=== PATIENT | female | born 1975 | race Caucasian/White ===

== ENCOUNTER 2019-08-13 09:29 | Outpatient (CLI) | payer BC, SELFPAY ==
--- NOTE | ~2019-08-13 | MM_ITS ---
EXAMINATION: MM screening fabienne BI w aurelia HISTORY: Screening mammogram TECHNIQUE: Craniocaudal and mediolateral oblique 3-D tomosynthesis images were obtained and synthetic 2-D images were generated. CAD analysis was submitted and interpreted. COMPARISON: 07/29/2018, 07/25/2017, 07/19/2016 bilateral digital screening mammogram examinations BREAST PARENCHYMAL COMPOSITION: There are scattered areas of fibroglandular density. FINDINGS: There is no evidence of suspicious mass, calcification, or architectural distortion to sugg est malignancy in either breast. There has been no suspicious interval change. IMPRESSION: 1. No mammographic evidence of malignancy. 2. Recommend routine screening mammography in one year. BI-RADS Category 1: Negative Reviewed, dictated and finalized at location A.
== END 2019-08-13 09:30 | disposition home or self-care (01) ==
PROVIDERS: PCP Family Medicine
DX: Z12.31 Encounter for screening mammogram for malignant neoplasm of breast (principal)
CPT/HCPCS: 77063; 77067

== ENCOUNTER → 2020-08-08 13:18 | Outpatient (CLI) | payer BC, SELFPAY ==
--- NOTE | ~2020-08-08 | XR_ITS ---
XR foot LT min 3V DATE: 08/08/2020 14:12 INDICATION: Left ankle effusion. Left ankle and foot pain. TECHNIQUE: 4 views COMPARISON: Mild plantar FINDINGS: Calcaneal enthesopathy without associated erosive change or periostitis. Mild distal Achill es tendon calcification. Mild osteoarthritis at the first metatarsophalangeal joint. No fracture, dislocation, periosteal reaction or bone destruction. IMPRESSION: Plantar calcaneal enthesopathy and minimal distal Achilles tendon calcification Mild osteoarthritis at first metatarsophalangeal joint Reviewed, dictated and finalized at location A. IMPRESSION: Plantar calcaneal enthesopathy and minimal distal Achilles tendon c alcification Mild osteoarthritis at first metatarsophalangeal joint
--- NOTE | ~2020-08-08 | XR_ITS ---
XR ankle LT min 3V DATE: 08/08/2020 14:12 INDICATION: Left ankle effusion TECHNIQUE: 4 views COMPARISON: None FINDINGS: Mild plantar calcaneal enthesopathy without periostitis or erosive change. Minimal distal A chilles soft tissue calcification. No fracture or dislocation of the ankle or disruption of the ankle mortise. No periosteal reaction or bone destruction. IMPRESSION: Plantar calcaneal enthesopathy Reviewed, dictated and finalized at location A.
== END ==
PROVIDERS: PCP Family Medicine; Visit Provider Family Medicine
DX: M25.472 Effusion, left ankle (principal); M77.32 Calcaneal spur, left foot; M19.072 Primary osteoarthritis, left ankle and foot
CPT/HCPCS: 73610; 73630

== ENCOUNTER 2020-08-15 08:24 | Outpatient (CLI) | payer BC, SELFPAY ==
--- NOTE | ~2020-08-15 | MM_ITS ---
EXAMINATION: MM screening fabienne BI w aurelia HISTORY: Screening mammogram TECHNIQUE: Craniocaudal and mediolateral oblique 3-D tomosynthesis images were obtained and synthetic 2-D images were generated. CAD analysis was submitted and interpreted. COMPARISON: 08/13/2019, 07/29/2018, 08/17 2017 bilateral digital screening mammogram examinations BREAST PARENCHYMAL COMPOSITION: There are scattered areas of fibroglandular density. FINDINGS: There is no evidence of suspicious mass, calcification, or architectural distortion to sugg est malignancy in either breast. There has been no suspicious interval change. IMPRESSION: 1. No mammographic evidence of malignancy. 2. Recommend routine screening mammography in one year. BI-RADS Category 1: Negative Reviewed, dictated and finalized at location A.
== END 2020-08-15 08:25 | disposition home or self-care (01) ==
LOC: ANHIMG 08:29
PROVIDERS: PCP Family Medicine
DX: Z12.31 Encounter for screening mammogram for malignant neoplasm of breast (principal)
CPT/HCPCS: 77063; 77067

== ENCOUNTER → 2020-12-26 08:30 | Outpatient (CLI) | payer BC, SELFPAY ==
--- NOTE | ~2020-12-26 | MR_ITS ---
EXAMINATION: MR ankle LT wo con DATE: 12/26/2020 09:15 INDICATION: Left ankle pain and swelling TECHNIQUE: Magnetic resonance imaging (MRI) of the left ankle was performed without intravenous contr ast. Sequences included sagittal, coronal, and axial proton-density weighted fast spin echo without a nd with fat saturation. COMPARISON: None. FINDINGS: Medial ankle ligaments: Deep and superficial deltoid ligaments as well as the spring ligament are normal. Lateral ankle ligaments: The anterior and posterior inferior tibiofibular ligaments are normal. The anterior talofibular, calc aneofibular and posterior talofibular ligaments are normal. Tendons: Achilles tendon is normal. Mild increased fluid signal within the peroneal tendon sheath consistent w ith mild tenosynovitis. Peroneus longus and brevis tendons are normal. The tibialis anterior and exte nsor hallucis longus and extensor digitorum longus tendons are normal. Additional increased fluid sig nal consistent with tenosynovitis distally within the tibialis posterior tendon sheath. Tibialis post erior, flexor digitorum longus and flexor hallucis longus tendons are normal. Plantar fascia: Chronic mild plantar and subtly with mild thickening and increased signal of the central component of the plantar aponeurosis and with small enthesophyte at its calcaneal origin. No surrounding soft tis neel edema to suggest acute plantar fasciitis. Bones/other: Bone alignment is normal. Normal marrow signal throughout. No fracture or pathologic marrow replacing process. Joint spaces appear relatively preserved with no evident chondromalacia, osteophytes or ero sions. Physiologic amount fluid in the joint spaces. IMPRESSION: 1. Mild tibialis posterior and peroneal tenosynovitis with normal-appearing tendons. 2. Chronic mild plantar enthesopathy. Reviewed, dictated and finalized at location B. IMPRESSION: 1. Mild tibialis posterior and peroneal tenosynovitis with normal-appearing ten dons. 2. Chronic mild plantar enthesopathy.
== END ==
PROVIDERS: PCP Family Medicine
DX: M77.32 Calcaneal spur, left foot (principal); M65.872 Other synovitis and tenosynovitis, left ankle and foot
CPT/HCPCS: 73721

== ENCOUNTER 2021-08-17 07:48 | Outpatient (CLI) | payer BC, SELFPAY ==
--- NOTE | ~2021-08-17 | MM_ITS ---
EXAMINATION: MM screening fabienne BI w aurelia HISTORY: Screening mammogram TECHNIQUE: Craniocaudal and mediolateral oblique 3-D tomosynthesis images were obtained and synthetic 2-D images were generated. CAD analysis was submitted and interpreted. COMPARISON: 08/11/2020, 08/13/2019, 07/29/2018 bilateral screening mammogram examinations BREAST PARENCHYMAL COMPOSITION: There are scattered areas of fibroglandular density. FINDINGS: There is no evidence of suspicious mass, calcification, or architectural distortion to sugg est malignancy in either breast. There has been no suspicious interval change. IMPRESSION: 1. No mammographic evidence of malignancy. 2. Recommend routine screening mammography in one year. BI-RADS Category 1: Negative Reviewed, dictated and finalized at location A.
== END 2021-08-17 07:49 | disposition home or self-care (01) ==
PROVIDERS: PCP Family Medicine; Visit Provider Obstetrics & Gynecology
DX: Z12.31 Encounter for screening mammogram for malignant neoplasm of breast (principal)
CPT/HCPCS: 77063; 77067

== ENCOUNTER 2021-10-24 00:03 | Day surgery (SDC) | payer BC, SELFPAY ==
[2021-10-04 15:10] VITALS: BMI 38.5
[2021-10-24 08:09] VITALS: BP 125/79; PULSE 84; RESP 116; TEMP 36.5; O2SAT 100; BMI 37.5
[2021-10-24] MEDS: LACTATED RINGERS 1,000 ML 150 ML IV CONT (08:17)
--- NOTE | 2021-10-24 08:17 | SUR.PREOP ---
Per Dr. Rouse there is no need to do a urine test on patient due to the ablation 14 yrs ago and not having a menstrual period since then.
--- NOTE | 2021-10-24 09:00 | P.HP_ITS ---
H&P: HPI History of Present Illness Date/Time: 10/24/21 09:00 Chief Complaint: Neoplasia screening. Narrative: This is a 46-year-old white female patient presents for screening colonoscopy. Patient's current weight appetite and bowel movements are normal. Patient denies abdominal pain. She has had no bleeding. Family history is noncontributory. She presents today for screening colonoscopy. Review of Systems Review of Systems: Review of systems noncontributory. [facility] Past Medical History Medical History Allergic rhinitis, cause unspecified Body mass index [BMI] 35.0-35.9, adult (10/15/18) GERD with esophagitis Other herpesviral infection Sciatic leg pain Social History Social History Smoking status: Never smoker Second hand tobacco smoke exposure: No Alcohol intake: current Alcohol use details: 1 glass of wine per week Substance use: never Substance use type: does not use Living arrangements: with family Spiritual care concerns: No Meds Home Medications and Allergies Home Medications Medication Instructions Recorded Confirmed Type valacyclovir 1 gram tablet 2,000 mg PO Q12H #12 tabs 04/17/21 10/24/21 Rx phentermine 37.5 mg tablet 18.75 mg PO DAILY #45 tabs 08/25/21 10/24/21 Rx topiramate 25 mg tablet 25 mg PO DAILY #90 tabs 08/25/21 10/24/21 Rx Allergies Allergy/AdvReac Type Severity Reaction Status Date / Time cephalexin Allergy Unknown Unknown Verified 10/24/21 08:08 Vital Signs Vital Signs - 24 hr 10/24/21 08:09 Temperature 97.7 F Pulse Rate 84 Respiratory Rate 116 H Blood Pressure 125/79 Pulse Oximetry 100 Oxygen Delivery Room Air Exam Narrative: Physical exam reveals patient to be alert. Vital signs stable. HEENT exam is unremarkable. Patient is anicteric. Lungs are clear to auscultation and percussion. Heart is without murmur or extra sounds. Abdominal exam bowel sounds are present soft nontender with no hepatospleno megaly. Digital external rectal exam is normal. Assessment and Plan Assessment and plan (1) Encounter for screening colonoscopy: Code(s): Z12.11 - Encounter for screening for malignant neoplasm of colon Status: Acute Assessment and Plan: Patient presents for screening colonoscopy. Appears to be at average risk for colon polyps. Further recommendations will be given after endoscopy.
--- NOTE | 2021-10-24 09:20 | WPDANESEPPF ---
Anes - Initial Pre Proc Eval Procedure: Operation Date: 10/24/21 09:30 Proposed Procedures p Screening Colonoscopy - Frederic Bradford MD Date/Time: 10/24/21 09:20 Surgeon: Frederic Bradford MD Pre Op Diagnosis: neoplasm screening Patient Data Age: 46 Gender: F Height: 1.65 m Weight: 102.2 kg Last Vital Signs Temp 97.7 F 10/24/21 08:09 Pulse 84 10/24/21 08:09 Resp 116 H 10/24/21 08:09 BP 125/79 10/24/21 08:09 Pulse Ox 100 10/24/21 08:09 O2 Del Method Room Air 10/24/21 08:09 Allergies Allergy/AdvReac Type Severity Reaction Status Date / Time cephalexin Allergy Unknown Unknown Verified 10/24/21 08:08 Home Medications Medication Instructions Recorded Confirmed Type valacyclovir 1 gram tablet 2,000 mg PO Q12H #12 tabs 04/17/21 10/24/21 Rx phentermine 37.5 mg tablet 18.75 mg PO DAILY #45 tabs 08/25/21 10/24/21 Rx topiramate 25 mg tablet 25 mg PO DAILY #90 tabs 08/25/21 10/24/21 Rx Patient hx anesthesia problems: none Family hx anesthesia problems: none Results Review: All pre-operative results and documents have been reviewed as part of the pre-operative evaluation. [facility] Past Medical History Medical History Allergic rhinitis, cause unspecified Body mass index [BMI] 35.0-35.9, adult (10/15/18) GERD with esophagitis Other herpesviral infection Sciatic leg pain Social History Social History Smoking status: Never smoker Second hand tobacco smoke exposure: No Alcohol intake: current Alcohol use details: 1 glass of wine per week Substance use: never Substance use type: does not use Living arrangements: with family Spiritual care concerns: No Anes - Eval Final PreProcedure Day of Procedure 10/24/21 09:20 Patient weight: obese Heart: regular rate and rhythm Lungs: clear to auscultation Airway: Mallampati scale class II Neurological: alert and oriented Last oral intake: >/= 8 hours ASA classification: II Emergent: no Anesthetic plan: proceed Anesthesia type and monitoring: general GIVS and standard monitoring Results Review: All pre-operative results and documents have been reviewed as part of the pre-operative evaluation. Informed Consent: The patient's anesthetic plan and its attendant risks and benefits were discussed with the patient/family/POA. Questions were solicited and answers provided to the satisfaction of the patient/family/POA.
[2021-10-24 09:57] VITALS: BP 89/72; PULSE 76; RESP 76; O2SAT 100
[2021-10-24 10:07] VITALS: BP 104/59; PULSE 74; RESP 76; O2SAT 100
[2021-10-24 10:17] VITALS: BP 114/79; PULSE 75; RESP 76; O2SAT 100
== END 2021-10-24 10:30 | disposition home or self-care (01) ==
PROVIDERS: PCP Family Medicine; Visit Provider Internal Medicine Gastroenterology
PROC: 0DJD8ZZ Inspection of Lower Intestinal Tract, Via Natural or Artificial Opening Endoscopic (ICD-10-PCS; CPT 45378; principal; 2021-10-24 09:30)
DX: Z12.11 Encounter for screening for malignant neoplasm of colon (principal); K64.8 Other hemorrhoids; K21.00 Gastro-esophageal reflux disease with esophagitis, without bleeding; E66.9 Obesity, unspecified; Z68.37 Body mass index [BMI] 37.0-37.9, adult
CPT/HCPCS: 45378; J2704; J7120

== ENCOUNTER 2022-10-02 08:17 | Outpatient (CLI) | payer BC, SELFPAY ==
--- NOTE | ~2022-10-02 | MM_ITS ---
EXAMINATION: MM screening fabienne BI w aurelia HISTORY: Screening mammogram TECHNIQUE: Craniocaudal and mediolateral oblique 3-D tomosynthesis images were obtained and synthetic 2-D images were generated. CAD analysis was submitted and interpreted. COMPARISON: 08/17/2021, 08/11/2020, 08/13/2019 bilateral screening mammogram examinations BREAST PARENCHYMAL COMPOSITION: There are scattered areas of fibroglandular density. FINDINGS: There is no evidence of suspicious mass, calcification, or architectural distortion to sugg est malignancy in either breast. There has been no suspicious interval change. IMPRESSION: 1. No mammographic evidence of malignancy. 2. Recommend routine screening mammography in one year. BI-RADS Category 1: Negative Reviewed, dictated and finalized at location A.
== END 2022-10-02 08:18 | disposition home or self-care (01) ==
PROVIDERS: PCP Family Medicine; Visit Provider Obstetrics & Gynecology
DX: Z12.31 Encounter for screening mammogram for malignant neoplasm of breast (principal)
CPT/HCPCS: 77063; 77067

== ENCOUNTER 2023-03-24 19:33 | Emergency (ER) | payer BC, SELFPAY ==
--- NOTE | 2023-03-24 19:35 | ED.SKABFB ---
HPI - Skin/Abscess/Foreign Bdy General Chief complaint: Wound/Laceration Stated complaint: FINGER LACERATION Time Seen by Provider: 03/24/23 19:40 Source: patient and family Mode of arrival: ambulatory Limitations: no limitations History of Present Illness HPI narrative: Patient presents with laceration to left index finger. Patient states she was cutting [place] for a new year's [place] green party and cut herself with knife. Patient reports she was unable to get bleeding to stop, wound looks deep and is concerned that she may need sutures. Last tetanus was 1 year ago. Range of motion and distal neurovascularly intact. All systems reviewed and negative except as noted above. Related Data Allergies Allergy/AdvReac Type Severity Reaction Status Date / Time cephalexin Allergy Unknown Unknown Verified 03/24/23 19:40 Review of Systems Review of Systems: CONSTITUTIONAL: Denies fever, chills, or sweats. EYES: Denies visual changes, redness, or discharge. ENT: Denies rhinorrhea, congestion, sore throat, or otalgia. CARDIOVASCULAR: Denies chest pain, palpitations, or edema. RESPIRATORY: Denies cough or dyspnea. GASTROINTESTINAL: Denies abdominal pain, nausea, vomiting, or diarrhea. GENITOURINARY: Denies dysuria or hematuria. SKIN: Denies rash or itching. Reports laceration to left index finger. MUSCULOSKELETAL: Denies back pain, joint pain, or myalgia. NEUROLOGIC: Denies headache, numbness, or weakness. PSYCHIATRIC: Denies anxiety or depression. All other systems reviewed are negative, except as documented in HPI. [facility] Past Medical History Medical History Allergic rhinitis, cause unspecified Body mass index [BMI] 35.0-35.9, adult (10/15/18) GERD with esophagitis Other herpesviral infection Sciatic leg pain Social History Social History (Updated 01/03/23 @ 13:30 by Jessica Cordova MA) Social History: Caffeine-none Smoking status: Never smoker Second hand tobacco smoke exposure: No Alcohol intake: current Alcohol use details: 1 glass of wine per week Substance use: never Substance use type: does not use Lack of Transportation: No Lack of Food: Never True Current Housing: I Have Housing Concerned About Future Housing: No Difficulty Paying Gas/Electric Bills: No Difficulty Paying for Meds: No Currently Unemployed: No Education: Bachelor's Degree Difficulty w/ Childcare or Family Care: No Living arrangements: with family Spiritual care concerns: No Comments At time of signature, agree with nursing past medical, surgical, social and family history. There is no relevant family history pertinent to the presenting complaint. Exam Narrative: GENERAL: This is a well-nourished, well-developed patient, in no apparent distress. HEAD: normocephalic, atraumatic. EYES: PERRL. Sclera clear/white. Vision is grossly intact. EARS: External ears normal NOSE: External nose normal NECK: Neck supple, non-tender without lymphadenopathy, masses or thyromegaly. CARDIOVASCULAR: Regular rate and rhythm without murmurs, gallops, or rubs. RESPIRATORY: Clear to auscultation. Breath sounds equal bilaterally. No wheezes, rales, or rhonchi. SKIN: warm, Dry, with no suspicious lesions or rash, good texture and turgor. Laceration to distal aspect of left index finger approximately 1 cm, v-shaped. NEURO: awake, alert, and oriented to person, place and time. There were no obvious focal neurologic abnormalities. EXTREMITIES: No joint tenderness, effusion, or edema noted. Course Course Level of Care: Express Care Visit Vital Signs Vital signs: Reviewed Procedures Laceration Laceration 1: Date: 03/24/23 Time: 19:55 Site: hand (Left index finger) Side (If applicable): left Size (cm): 1 Description: flap and irregular Depth: simple, single layer Local Anesthetic: lidocaine 1% Amount of anesthesia u
[2023-03-24 19:44] VITALS: BP 139/92; PULSE 97; RESP 20; TEMP 37; O2SAT 99
== END 2023-03-24 20:10 | disposition home or self-care (01) ==
PROVIDERS: Emergency Provider Nurse Practitioner Family; PCP Family Medicine
DX: S61.211A Laceration without foreign body of left index finger without damage to nail, initial encounter (principal); W26.0XXA Contact with knife, initial encounter
CPT/HCPCS: 12001; 99212; G0463

== ENCOUNTER 2023-11-28 07:30 | Outpatient (CLI) | payer BC, SELFPAY ==
--- NOTE | ~2023-11-28 | MM_ITS ---
EXAMINATION: MM screening fabienne BI w aurelia HISTORY: Screening TECHNIQUE: Craniocaudal and mediolateral oblique 3-D tomosynthesis images were obtained and synthetic 2-D images were generated. CAD analysis was submitted and interpreted. COMPARISON: Comparison to multiple prior studies sequentially, with oldest reviewed study dated 05/2017. BREAST PARENCHYMAL COMPOSITION: Not dense: There are scattered areas of fibroglandular density. FINDINGS: There is no evidence of suspicious mass, calcification, or architectural distortion to sugg est malignancy in either breast. There has been no suspicious interval change. IMPRESSION: 1. No mammographic evidence of malignancy. 2. Recommend routine screening mammography in one year. BI-RADS Category 1: Negative Reviewed, dictated and finalized at location B.
== END 2023-11-28 07:31 | disposition home or self-care (01) ==
PROVIDERS: PCP Family Medicine; Visit Provider Obstetrics & Gynecology
DX: Z12.31 Encounter for screening mammogram for malignant neoplasm of breast (principal)
CPT/HCPCS: 77063; 77067

== ENCOUNTER 2024-11-24 15:52 | Outpatient (CLI) | payer BC, SELFPAY ==
--- OUTSIDE RECORDS SUMMARY | 2024-11-24 15:55 | XMS_ITS | Encounter Summary ---
Author Organization [facility] Address [address] [place] [address] Care Team Providers Care Tapper Helper Name Role Phone Mejia Mcgarry MD Primary Care Provider [phone]- [phone] Encounter Details Date Type Department Care Team (Late Contact Info) Description 10/08/2001 Outpatient Historical 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 CONGRESSIONAL AIDE - Medical [place] [address] [place] [address] Eli Escobar MD [address] [place] [address] documented as of this encounter Visit Diagnoses Not on filedocumented in this encounter Care Teams Tapper Helper Relationship Specialty Start Date End Date Mejia Mcgarry MD PCP - General Family Practice 11/04/20 documented as of this encounter
--- OUTSIDE RECORDS SUMMARY | 2024-11-24 15:55 | XMS_ITS | Encounter Summary ---
Author Organization [facility] Address [address] [place] [address] Care Team Providers Care Sheriff Officer Name Role Phone Mejia Mcgarry MD Primary Care Provider [phone]- [phone] Encounter Details Date Type Department Care Team (Late Contact Info) Description 10/09/2000 Outpatient Historical [facility] Family Medicine - 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 Gender Identity Not on file Sexual Orientation Not on file documented as of this encounter Plan of Treatment Upcoming Encounters Date Type Department Care Team (Late st Contact Info) Description 10/27/2025 9:45 AM CDT Office Visit [facility] WHEELCHAIR VAN DRIVER - Medical [place] [address] [place] [address] Eli Escobar MD [address] [place] [address] documented as of this encounter Visit Diagnoses Not on filedocumented in this encounter Care Teams Sheriff Officer Relationship Specialty Start Date End Date Mejia Mcgarry MD PCP - General Family Practice 11/04/20 documented as of this encounter
--- OUTSIDE RECORDS SUMMARY | 2024-11-24 15:55 | XMS_ITS | Encounter Summary ---
Author Organization [facility] Address [address] [place] [address] Care Team Providers Care Tempering Machine Operator Name Role Phone Mejia Mcgarry MD Primary Care Provider [phone]- [phone] Encounter Details Date Type Department Care Team (Late Contact Info) Description 08/29/1998 Outpatient Historical [facility] Family Medicine - [facility] [address] 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 Gender Identity Not on file Sexual Orientation Not on file documented as of this encounter Plan of Treatment Upcoming Encounters Date Type Department Care Team (Late st Contact Info) Description 10/27/2025 9:45 AM CDT Office Visit [facility] FISHERIES BIOLOGIST - Medical [place] [address] [place] [address] Eli Escobar MD [address] [place] [address] documented as of this encounter Visit Diagnoses Not on filedocumented in this encounter Care Teams Tempering Machine Operator Relationship Specialty Start Date End Date Mejia Mcgarry MD PCP - General Family Practice 11/04/20 documented as of this encounter
--- OUTSIDE RECORDS SUMMARY | 2024-11-24 15:55 | XMS_ITS | Encounter Summary ---
Author Organization [facility] Address [address] [place] [address] Care Team Providers Care Livestock Farmer Name Role Phone Mejia Mcgarry MD Primary Care Provider +1- [phone] Encounter Details Date Type Department Care Team (Late Contact Info) Description 06/28/2000 Outpatient Historical [facility] Family Medicine - [facility] [address] 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 Gender Identity Not on file Sexual Orientation Not on file documented as of this encounter Plan of Treatment Upcoming Encounters Date Type Department Care Team (Late st Contact Info) Description 10/27/2025 9:45 AM CDT Office Visit [facility] CABLEWAY OPERATOR - Medical [place] [address] [place] [address] Eli Escobar MD [address] [place] [address] documented as of this encounter Visit Diagnoses Not on filedocumented in this encounter Care Teams Livestock Farmer Relationship Specialty Start Date End Date Mejia Mcgarry MD PCP - General Family Practice 11/04/20 documented as of this encounter
--- OUTSIDE RECORDS SUMMARY | 2024-11-24 15:55 | XMS_ITS | Encounter Summary ---
Author Organization [facility] Address [address] [place] [address] Care Team Providers Care Strategic Alliances Manager Name Role Phone Mejia Mcgarry MD Primary Care Provider +1- [phone] Encounter Details Date Type Department Care Team (Latest Contact Info) Description 09/12/1999 Outpatient Historical [facility] Roberto Sosa MD [facility] [address] [address] Unspecified high-risk (Primary Dx) Social History Tobacco Use Types Packs/Day Years Used Date Smoking Tobacco: Never Assessed Comments Unknown Sex and Gender Information Value Date Recorded Sex Assigned at Not on file 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 Gender Identity Not on file Sexual Orientation Not on file documented as of this encounter Plan of Treatment Upcoming Encounters Date Type Department Care Team (Late st Contact Info) Description 10/27/2025 9:45 AM CDT Office Visit [facility] FIELD CARE MANAGER - Medical [place] [address] [address] Eli Escobar MD [address] [address] documented as of this encounter Visit Diagnoses Diagnosis Unspecified high-risk - Primary documented in this encounter Care Teams Strategic Alliances Manager Relationship Specialty Start Date End Date Mejia Mcgarry MD PCP - General Family Practice 11/04/20 documented as of this encounter
--- OUTSIDE RECORDS SUMMARY | 2024-11-24 15:55 | XMS_ITS | Encounter Summary ---
Author Organization [facility] Address [address] [place] [address] Care Team Providers Care Director Of Recreation Therapy Name Role Phone Mejia Mcgarry MD Primary Care Provider +1- [phone] Encounter Details Date Type Department Care Team (Late Contact Info) Description 01/10/2001 Outpatient Historical [facility] Family Medicine - [facility] [address] [facility] [address] [place] [address] Kenisha Rosado MD [address] [place] [address] Social History Tobacco Use Types Packs/Day Years Used Date Smoking Tobacco: Never Assessed Comments Unknown Sex and Gender Information Value Date Recorded Sex Assigned at Not on file Legal Sex Female 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 Gender Identity Not on file Sexual Orientation Not on file documented as of this encounter Plan of Treatment Upcoming Encounters Date Type Department Care Team (Late st Contact Info) Description 10/27/2025 9:45 AM CDT Office Visit [facility] BELT PICKER - Medical [place] [address] [place] [address] Eli Escobar MD [address] [place] [address] documented as of this encounter Visit Diagnoses Not on filedocumented in this encounter Care Teams Director Of Recreation Therapy Relationship Specialty Start Date End Date Mejia Mcgarry MD PCP - General Family Practice 11/04/20 documented as of this encounter
--- OUTSIDE RECORDS SUMMARY | 2024-11-24 15:55 | XMS_ITS | Encounter Summary ---
Author Organization [facility] Address [address] [place] [address] Care Team Providers Care Area Supervisor Name Role Phone Mejia Mcgarry MD Primary Care Provider +1- [phone] Encounter Details Date Type Department Care Team (Late Contact Info) Description 08/13/2000 Outpatient Historical [facility] Family Medicine - [facility] [address] [facility] [address] [place] [address] Kenisha Rosado MD [address] [place] [address] Social History Tobacco Use Types Packs/Day Years Used Date Smoking Tobacco: Never Assessed Comments Unknown Sex and Gender Information Value Date Recorded Sex Assigned at Not on file Legal Sex Female 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 Gender Identity Not on file Sexual Orientation Not on file documented as of this encounter Plan of Treatment Upcoming Encounters Date Type Department Care Team (Late st Contact Info) Description 10/27/2025 9:45 AM CDT Office Visit [facility] SUPERVISOR WHIPPED TOPPING - Medical [place] [address] [place] [address] Eli Escobar MD [address] [place] [address] documented as of this encounter Visit Diagnoses Not on filedocumented in this encounter Care Teams Area Supervisor Relationship Specialty Start Date End Date Mejia Mcgarry MD PCP - General Family Practice 11/04/20 documented as of this encounter
--- OUTSIDE RECORDS SUMMARY | 2024-11-24 15:55 | XMS_ITS | Encounter Summary ---
Author Organization [facility] Address [address] [place] [address] Care Team Providers Care Newspaper Clipper Name Role Phone Mejia Mcgarry MD Primary Care Provider +1- [phone] Encounter Details Date Type Department Care Team (Latest Contact Info) Description 08/11/1999 Outpatient Historical [facility] Roberto Sosa MD [facility] [address] [address] Unspecified high-risk (Primary Dx) Social History Tobacco Use Types Packs/Day Years Used Date Smoking Tobacco: Never Assessed Comments Unknown Sex and Gender Information Value Date Recorded Sex Assigned at Not on file Legal Sex Female 4:56 AM TRAUMA MANAGER Gender Identity Not on file Sexual Orientation Not on file documented as of this encounter Plan of Treatment Upcoming Encounters Date Type Department Care Team (Late st Contact Info) Description 10/27/2025 9:45 AM CDT Office Visit [facility] ELECTRICAL TESTS SUPERVISOR - Medical [place] [address] [address] Eli Escobar MD [address] [address] documented as of this encounter Visit Diagnoses Diagnosis Unspecified high-risk - Primary documented in this encounter Care Teams Newspaper Clipper Relationship Specialty Start Date End Date Mejia Mcgarry MD PCP - General Family Practice 11/04/20 documented as of this encounter
--- OUTSIDE RECORDS SUMMARY | 2024-11-24 15:55 | XMS_ITS | Encounter Summary ---
Author Organization [facility] Address [address] [place] [address] Care Team Providers Care Heel Top Lift Splitter Name Role Phone Mejia Mcgarry MD Primary Care Provider +1- [phone] Encounter Details Date Type Department Care Team (Latest Contact Info) Description 11/29/1999 Inpatient Historical [facility] Roberto Sosa MD [address] [place] [address] Short cord complicating labor and delivery, delivered (Primary Dx) Social History Tobacco Use Types Packs/Day Years Used Date Smoking Tobacco: Never Assessed Comments Unknown Sex and Gender Information Value Date Recorded Sex Assigned at Not on file Legal Sex Female 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 Gender Identity Not on file Sexual Orientation Not on file documented as of this encounter Plan of Treatment Upcoming Encounters Date Type Department Care Team (Late st Contact Info) Description 10/27/2025 9:45 AM CDT Office Visit [facility] SHUTTLE FITTING SUPERVISOR - Medical [place] [address] [facility] [address] [place] [address] Eli Escobar MD [facility] [address] [address] documented as of this encounter Visit Diagnoses Diagnosis Short cord complicating labor and delivery, delivered- Primary documented in this encounter Care Teams Heel Top Lift Splitter Relationship Specialty Start Date End Date Mejia Mcgarry MD PCP - General Family Practice 11/04/20 documented as of this encounter
--- OUTSIDE RECORDS SUMMARY | 2024-11-24 15:55 | XMS_ITS | Encounter Summary ---
Author Organization [facility] Address [address] [place] [address] Care Team Providers Care Timber Robber Name Role Phone Mejia Mcgarry MD Primary Care Provider +1- [phone] Encounter Details Date Type Department Care Team (Latest Contact Info) Description 10/19/1999 Outpatient Historical [facility] Roberto Sosa MD [facility] [address] [address] Abnormal findings on screening (Primary Dx) Social History Tobacco Use Types Packs/Day Years Used Date Smoking Tobacco: Never Assessed Comments Unknown Sex and Gender Information Value Date Recorded Sex Assigned at Not on file Legal Sex Female 4:56 AM PLUGGER Gender Identity Not on file Sexual Orientation Not on file documented as of this encounter Plan of Treatment Upcoming Encounters Date Type Department Care Team (Late st Contact Info) Description 10/27/2025 9:45 AM CDT Office Visit [facility] MONOLOGIST - Medical [place] [address] [facility] [address] [place] [address] Eli Escobar MD [address] [facility] [address] [place] [address] documented as of this encounter Visit Diagnoses Diagnosis Abnormal findings on screening- Primary documented in this encounter Care Teams Timber Robber Relationship Specialty Start Date End Date Mejia Mcgarry MD PCP - General Family Practice 11/04/20 documented as of this encounter
--- OUTSIDE RECORDS SUMMARY | 2024-11-24 15:55 | XMS_ITS | Encounter Summary ---
Author Organization [facility] Address [address] [place] [address] Care Team Providers Care Client Relations Representative Name Role Phone Mejia Mcgarry MD Primary Care Provider +1- [phone] Encounter Details Date Type Department Care Team (Late Contact Info) Description 01/29/2000 Outpatient Historical [facility] Family Medicine - [facility] [address] [facility] [address] [place] [address] Kenisha Rosado MD [address] [place] [address] Social History Tobacco Use Types Packs/Day Years Used Date Smoking Tobacco: Never Assessed Comments Unknown Sex and Gender Information Value Date Recorded Sex Assigned at Not on file Legal Sex Female 4:56 AM DIRECTOR RADIATION ONCOLOGY Gender Identity Not on file Sexual Orientation Not on file documented as of this encounter Plan of Treatment Upcoming Encounters Date Type Department Care Team (Late st Contact Info) Description 10/27/2025 9:45 AM CDT Office Visit [facility] PAINT MIXER MACHINE - Medical [place] [address] [place] [address] Eli Escobar MD [address] [place] [address] documented as of this encounter Visit Diagnoses Not on filedocumented in this encounter Care Teams Client Relations Representative Relationship Specialty Start Date End Date Mejia Mcgarry MD PCP - General Family Practice 11/04/20 documented as of this encounter
--- OUTSIDE RECORDS SUMMARY | 2024-11-24 15:55 | XMS_ITS | Encounter Summary ---
Author Organization [facility] Address [address] [place] [address] Care Team Providers Care Poultry Culler Name Role Phone Mejia Mcgarry MD Primary Care Provider +1- [phone] Encounter Details Date Type Department Care Team (Late Contact Info) Description 11/26/2000 Outpatient Historical [facility] Family Medicine - [facility] [address] [facility] [address] [place] [address] Kenisha Rosado MD [address] [place] [address] Social History Tobacco Use Types Packs/Day Years Used Date Smoking Tobacco: Never Assessed Comments Unknown Sex and Gender Information Value Date Recorded Sex Assigned at Not on file Legal Sex Female 4:56 AM MANAGER OF EXHIBITIONS AND COLLECTIONS Gender Identity Not on file Sexual Orientation Not on file documented as of this encounter Plan of Treatment Upcoming Encounters Date Type Department Care Team (Late st Contact Info) Description 10/27/2025 9:45 AM CDT Office Visit [facility] ELECTRODE TURNER AND FINISHER - Medical [place] [address] [place] [address] Eli Escobar MD [address] [place] [address] documented as of this encounter Visit Diagnoses Not on filedocumented in this encounter Care Teams Poultry Culler Relationship Specialty Start Date End Date Mejia Mcgarry MD PCP - General Family Practice 11/04/20 documented as of this encounter
--- OUTSIDE RECORDS SUMMARY | 2024-11-24 15:55 | XMS_ITS | Encounter Summary ---
Author Organization [facility] Address [address] [place] [address] Care Team Providers Care Marine Electrician Name Role Phone Mejia Mcgarry MD Primary Care Provider +1- [phone] Encounter Details Date Type Department Care Team (Latest Contact Info) Description 11/20/1999 Outpatient Historical [facility] Roberto Sosa MD [facility] [address] [address] Abnormal findings on screening (Primary Dx) Social History Tobacco Use Types Packs/Day Years Used Date Smoking Tobacco: Never Assessed Comments Unknown Sex and Gender Information Value Date Recorded Sex Assigned at Not on file Legal Sex Female 4:56 AM MANAGEMENT AND BUDGET ANALYST Gender Identity Not on file Sexual Orientation Not on file documented as of this encounter Plan of Treatment Upcoming Encounters Date Type Department Care Team (Late st Contact Info) Description 10/27/2025 9:45 AM CDT Office Visit [facility] RN CARDIOVASCULAR - Medical [place] [address] [facility] [address] [place] [address] Eli Esocbar MD [address] [facility] [address] [place] [address] documented as of this encounter Visit Diagnoses Diagnosis Abnormal findings on screening- Primary documented in this encounter Care Teams Marine Electrician Relationship Specialty Start Date End Date Mejia Mcgarry MD PCP - General Family Practice 11/04/20 documented as of this encounter
--- OUTSIDE RECORDS SUMMARY | 2024-11-24 15:55 | XMS_ITS | Encounter Summary ---
Author Organization [facility] Address [address] [place] [address] Care Team Providers Care Twisting Machine Operator Name Role Phone Mejia Mcgarry MD Primary Care Provider +1- [phone] Encounter Details Date Type Department Care Team (Latest Contact Info) Description 12/22/1999 Outpatient Historical [facility] Roberto Sosa MD [facility] [address] [address] Abnormal findings on screening (Primary Dx) Social History Tobacco Use Types Packs/Day Years Used Date Smoking Tobacco: Never Assessed Comments Unknown Sex and Gender Information Value Date Recorded Sex Assigned at Not on file Legal Sex Female 4:56 AM AIR TABLE OPERATOR Gender Identity Not on file Sexual Orientation Not on file documented as of this encounter Plan of Treatment Upcoming Encounters Date Type Department Care Team (Late st Contact Info) Description 10/27/2025 9:45 AM CDT Office Visit [facility] ECONOMICS PROFESSOR - Medical [place] [address] [facility] [address] [place] [address] Eli Escobar MD [address] [facility] [address] [place] [address] documented as of this encounter Visit Diagnoses Diagnosis Abnormal findings on screening- Primary documented in this encounter Care Teams Twisting Machine Operator Relationship Specialty Start Date End Date Mejia Mcgarry MD PCP - General Family Practice 11/04/20 documented as of this encounter
--- OUTSIDE RECORDS SUMMARY | 2024-11-24 15:55 | XMS_ITS | Encounter Summary ---
Author Organization [facility] Address [address] [place] [address] Care Team Providers Care Liability Claims Representative Name Role Phone Mejia Mcgarry MD Primary Care Provider +1- [phone] Encounter Details Date Type Department Care Team (Latest Contact Info) Description 03/13/1999 Outpatient Historical [facility] Leonel Verdin MD NO ADDRESS ON FILE Screening for malignant neoplasm of the cervix (Primary Dx) Social History Tobacco Use Types Packs/Day Years Used Date Smoking Tobacco: Never Assessed Comments Unknown Sex and Gender Information Value Date Recorded Sex Assigned at Not on file Legal Sex Female 4:56 AM FOLDER TAPER OPERATOR Gender Identity Not on file Sexual Orientation Not on file documented as of this encounter Plan of Treatment Upcoming Encounters Date Type Department Care Team (Late st Contact Info) Description 10/27/2025 9:45 AM CDT Office Visit [facility] RAIL ENGINEER - Medical [place] [address] [facility] [address] [place] [address] Eli Escobar MD [address] [facility] [address] [place] [address] documented as of this encounter Visit Diagnoses Diagnosis Screening for malignant neoplasm of the cervix- Primary documented in this encounter Care Teams Liability Claims Representative Relationship Specialty Start Date End Date Mejia Mcgarry MD PCP - General Family Practice 11/04/20 documented as of this encounter
--- OUTSIDE RECORDS SUMMARY | 2024-11-24 15:55 | XMS_ITS | Encounter Summary ---
Author Organization [facility] Address [address] [place] [address] Care Team Providers Care Senior Examiner Name Role Phone Mejia Mcgarry MD Primary Care Provider +1- [phone] Encounter Details Date Type Department Care Team (Late Contact Info) Description 01/01/2000 Outpatient Historical [facility] Family Medicine - [facility] [address] [facility] [address] [place] [address] Kenisha Rosado MD [address] [place] [address] Social History Tobacco Use Types Packs/Day Years Used Date Smoking Tobacco: Never Assessed Comments Unknown Sex and Gender Information Value Date Recorded Sex Assigned at Not on file Legal Sex Female 4:56 AM YARN MAN Gender Identity Not on file Sexual Orientation Not on file documented as of this encounter Plan of Treatment Upcoming Encounters Date Type Department Care Team (Late st Contact Info) Description 10/27/2025 9:45 AM CDT Office Visit [facility] BAG MACHINE OPERATOR HELPER - Medical [place] [address] [place] [address] Eli Escobar MD [address] [place] [address] documented as of this encounter Visit Diagnoses Not on filedocumented in this encounter Care Teams Senior Examiner Relationship Specialty Start Date End Date Mejia Mcgarry MD PCP - General Family Practice 11/04/20 documented as of this encounter
--- OUTSIDE RECORDS SUMMARY | 2024-11-24 15:55 | XMS_ITS | Encounter Summary ---
Author Organization [facility] Address [address] [place] [address] Care Team Providers Care Magnetic Observer Name Role Phone Mejia Mcgarry MD Primary Care Provider +1- [phone] Encounter Details Date Type Department Care Team (Late Contact Info) Description 11/02/2024 Results Follow-Up [facility] BOARD OPERATOR - [address] [address] Samantha Christianson NP [address] [address] CERV/VAG CYTO SCREEN PAP RLFX HPV Social History Tobacco Use Types Packs/Day Years Used Date Smoking Tobacco: Never Passive Smoke Exposure: Never Smokeless Tobacco: Never Alcohol Use Standard Drinks/Week Comments Never 0 (1 standard drink = 0.6 oz pur e alcohol) Comments No Sex and Gender Information Value Date Recorded Sex Assigned at Not on file Legal Sex Female 4:56 AM RUBBER TIRE AND TUBES SUPERVISOR Gender Identity Not on file Sexual Orientation Not on file documented as of this encounter Plan of Treatment Upcoming Encounters Date Type Department Care Team (Late Contact Info) Description 10/27/2025 9:45 AM CDT Office Visit [facility] BOARD OPERATOR - [facility] [address] [address] Eli Escobar MD [address] [address] documented as of this encounter Visit Diagnoses Not on filedocumented in this encounter Care Teams Magnetic Observer Relationship Specialty Start Date End Date Mejia Mcgarry MD PCP - General Family Practice 11/04/20 documented as of this encounter
--- OUTSIDE RECORDS SUMMARY | 2024-11-24 15:55 | XMS_ITS | Clinical Summary ---
Author Organization [facility] Address [address] [place] [address] Care Team Providers Care Jig Builder Helper Name Role Phone Unavailable Primary Care Provider Unavailabl e Source Comments [facility],non-owned Affiliates and Associated Physician Practices is amultiple site organization consisting of ambulatory clinics and hospital sitesin [place], [place] and [place]. This disclosure is being madepursuant to the Care Everywhere program and may not contain all information available regarding this patient. Last updated 17.[facility] Allergies Active Allergy Reactions Criticality Noted Date Comments Cephalexin Swelling Medium 11/23/2020 Reported on 11/23/2020 Medications * Be aware that medications may not be up to date on this document. Alwaysverify current medications with the patient. 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 Basal cell carcinoma, forehead 10/26/2020 Family History Relation Name Status Comments Brother Alive Father Maternal Grandfather Maternal Grandmother Mother Alive Paternal Grandfather Paternal Grandmother Sister Alive Social History Tobacco Use Types Packs/Day Years Used Date Smoking Tobacco: Never Smokeless Tobacco: Never Alcohol Use Standard Drinks/Week Comments Yes 0 (1 standard drink = 0.6 oz pur e alcohol) Comments Unknown Sex and Gender Information Value Date Recorded Sex Assigned at Not on file Legal Sex Female 10:27 AM CDT Gender Identity Not on file Sexual Orientation Not on file Last Filed Vital Signs Vital Sign Reading Time Taken Comments Blood Pressure 108/85 11/16/2020 8:38 AM CDT Pulse 75 11/16/2020 8:38 AM CDT Temperature - - Respiratory Rate - - Oxygen Saturation - - Inhaled Oxygen Concentration - - Weight 113.4 kg (250 lb) 11/16/2020 7:25 AM CDT Height 165.1 cm (5' 5) 11/16/2020 7:25 AM CDT Body Mass Index 41.6 11/16/2020 7:25 AM CDT Plan of Treatment Health Maintenance Due Date Last Done Comments COLOGUARD (AGES 45-75) - COLON CA SCREENING 1973 COLON MONITORING 1973 COLONOSCOPY - COLON CA SCREENING 1973 CT COLONOGRAPHY - COLON CA SCREENING 1973 Colorectal Cancer Screening 1973 FIT - COLON CA SCREENING 1973 FLEX SIG - COLON CA SCREENING 1973 LIPID TESTING 1973 MAMMOGRAM 1973 HIV SCREENING 01/29/1988 HEPATITIS C SCREENING 01/24/1991 DTAP/TDAP/TD VACCINES (1 - Tdap) 01/29/1992 HEPATITIS B VACCINE (1 of 3 - 19+ 3-dose series) 01/29/1992 SCREENING FOR DIABETES 11/23/2020 PNEUMOCOCCAL VACCINE 50+ (1 of 1 - PCV) 2023 ZOSTER VACCINE (1 of 2) 2023 COVID-19 VACCINE (3 - 2023- season) 2023 07/03/2020, 06/07/2020 DEPRESSION SCREENING 03/25/2024 INFLUENZA VACCINE (#1) 2024 0, 12/21/2018, 11/27/2017, Additional history exists HIB VACCINE Aged Out No longer eligi ble based on patient's age to complete this topic HPV VACCINE Aged Out No longer eligi ble based on patient's age to complete this topic MENINGOCOCCAL (Group B) VACCINE SHARED DECISION-MAKING Aged Out No longer eligible based on patient's age to complete this topic MENINGOCOCCAL GROUPS A/C/Y/W VACCINE Aged Out No longer eligible based on patient's age to complete this topic [place] [address] MIS
--- OUTSIDE RECORDS SUMMARY | 2024-11-24 15:55 | XMS_ITS | Encounter Summary ---
Author Organization [facility] Address [address] [place] [address] Care Team Providers Care Tie Carrier Name Role Phone Mejia Mcgarry MD Primary Care Provider +1- [phone] Encounter Details Date Type Department Care Team (Late Contact Info) Description 12/27/1998 Outpatient Historical [facility] Family Medicine - [facility] [address] [facility] [place] [address] Kenisha Rosado MD [address] [place] [address] Social History Tobacco Use Types Packs/Day Years Used Date Smoking Tobacco: Never Assessed Comments Unknown Sex and Gender Information Value Date Recorded Sex Assigned at Not on file Legal Sex Female 4:56 AM CHUTE FEEDER Gender Identity Not on file Sexual Orientation Not on file documented as of this encounter Plan of Treatment Upcoming Encounters Date Type Department Care Team (Late st Contact Info) Description 10/27/2025 9:45 AM CDT Office Visit [facility] HANDBOOK WRITER - Medical [place] [address] [employer] [address] [place] [address] lEi Escobar MD [address] [place] [address] documented as of this encounter Visit Diagnoses Not on filedocumented in this encounter Care Teams Tie Carrier Relationship Specialty Start Date End Date Mejia Mcgarry MD PCP - General Family Practice 11/04/20 documented as of this encounter
--- OUTSIDE RECORDS SUMMARY | 2024-11-24 15:55 | XMS_ITS | Encounter Summary ---
Author Organization [facility] Address [address] [place] [address] Care Team Providers Care Internal Control Specialist Name Role Phone Mejia Mcgarry MD Primary Care Provider +1- [phone] Encounter Details Date Type Department Care Team (Late Contact Info) Description 03/27/1999 Outpatient Historical [facility] Family Medicine - [facility] [address] [facility] [place] [address] Kenisha Rosado MD [address] [place] [address] Social History Tobacco Use Types Packs/Day Years Used Date Smoking Tobacco: Never Assessed Comments Unknown Sex and Gender Information Value Date Recorded Sex Assigned at Not on file Legal Sex Female 4:56 AM DRESSMAKER GARMENT FITTER Gender Identity Not on file Sexual Orientation Not on file documented as of this encounter Plan of Treatment Upcoming Encounters Date Type Department Care Team (Late st Contact Info) Description 10/27/2025 9:45 AM CDT Office Visit [facility] CUSTOMER RETENTION SPECIALIST - Medical [place] [address] [place] [address] Eli Escobar MD [address] [place] [address] documented as of this encounter Visit Diagnoses Not on filedocumented in this encounter Care Teams Internal Control Specialist Relationship Specialty Start Date End Date Mejia Mcgarry MD PCP - General Family Practice 11/04/20 documented as of this encounter
--- OUTSIDE RECORDS SUMMARY | 2024-11-24 15:55 | XMS_ITS | Clinical Summary ---
Author Organization [facility] Address [address] [place] [address] Phone Care Team Providers Care Manager Disaster Recovery Name Role Phone Mejia Mcgarry MD Primary Care Provider +1- [phone] Allergies No known active allergies Medications No known medications Active Problems No known active problems Social History Tobacco Use Types Packs/Day Years Used Date Smoking Tobacco: Never Smokeless Tobacco: Never Alcohol Use Standard Drinks/Week Comments Yes 0 (1 standard drink = 0.6 oz pur e alcohol) Comments No Sex and Gender Information Value Date Recorded Sex Assigned at Not on file Legal Sex Female 9:55 AM LOADER MAGAZINE GRINDER Gender Identity Not on file Sexual Orientation Not on file Last Filed Vital Signs Vital Sign Reading Time Taken Comments Blood Pressure 110/62 11/11/2020 3:31 PM CDT Pulse 89 11/11/2020 3:31 PM CDT Temperature 36.1 C (97 F) 11/11/2020 3:31 PM CDT Respiratory Rate 18 11/11/2020 3:31 PM CDT Oxygen Saturation 98% 11/11/2020 3:31 PM CDT Inhaled Oxygen Concentration - - Weight 104.3 kg (230 lb) 11/11/2020 3:31 PM CDT Height 165.1 cm (5' 5) 03/10/2020 10:05 AM LOADER MAGAZINE GRINDER Body Mass Index 38.27 03/10/2020 10:05 AM LOADER MAGAZINE GRINDER Plan of Treatment Health Maintenance Due Date Last Done Comments Hepatitis C Virus (HCV) Screening 1973 TdaP Immunization 1973 Hepatitis B Immunization (1 of 3 - 19+ 3-dose series) 01/29/1992 Pap Smear 1994 Cervical Cancer Screening (CCS) 2003 HPV/Cotest 2003 Cologuard 2018 Colonoscopy 2018 Colorectal Cancer Screening 2018 Immunochemical Fecal Occult Blood 2018 Pneumococcal Immunization (50+ years) (1 of 1 - PCV) 2023 Zoster Immunization (1 of 2) 2023 SARS-COV-2 Immunization ( season) 2023 02/24/2021, 07/03/2020, 06/07/2020 Influenza Immunization (#1) 11/23/202404/2019, 12/21/2018, 11/26/2017, Additional history exists Respiratory Syncytial Virus (RSV) Immunization (Adult) (1 - 1-dose 75+ series) 01/29/2048 Human Papillomavirus (HPV) Immunization Aged Out No longer eligible based on patient's age to complete this topic Meningococcal Immunization (ACWY) Aged Out No longer eligible based on patient's age to complete this topic Rotavirus Immunization Aged Out No lo nger eligible based on patient's age to complete this topic [place] [address] [facility] Care Teams Manager Disaster Recovery Relationship Specialty Start Date End Date Mejia Mcgarry MD [address] [place] [address] [address] [place] [address] PCP - General Family Medicine 03/10/20
--- OUTSIDE RECORDS SUMMARY | 2024-11-24 15:55 | XMS_ITS | Clinical Summary ---
Author Organization [facility] Address [address] [place] [address] Phone Care Team Providers Care Golf Ball Winder Name Role Phone Mejia Mcgarry MD Primary Care Provider +1- [phone] Allergies Active Allergy Reactions Criticality Noted Date Comments Cephalexin Swelling Medium 11/23/2020 Reported on 11/23/2020 Reported on 11/23/2020 Medications Zepbound 2.5 mg/0.5 mL Pen Injector 08/01/2023 Active valACYclovir (Valtrex) 1 gram tablet Take 2 Tablets by mouth 2 times daily. For 1 day. 30 Tablet 1 08/20/2023 Active meloxicam (MOBIC) 7.5 mg tablet 10/26/2024 Active Phentermine 37.5 mg Capsule 10/26/2024 Act thierno topiramate (TOPAMAX) 100 mg tablet 10/26/2024 Active Active Problems No known active problems Encounters Date Type Department Care Team Description 11/03/2024 External Device Data STL ABSTRACTION Provider, Abstract 11/02/2024 Results Follow-Up [facility] REGIONAL GUIDE - [address] [address] Samantha Christianson, LEONARDO CERV/VAG CYTO SCREEN PAP RLFX HPV 10/27/2024 10:00 AM CDT Office Visit [facility] REGIONAL GUIDE [facility] [address] [facility] [address] [place] [address] Samantha Christianson, LOGISTICS RESEARCH ENGINEER Encounter for gynecological examination without abnormal finding (Primary Dx); Breast cancer screening by mammogram; Decreased libido from Last 3 Months Immunizations Immunization Administration Dates Next Due (PFIZER)(12 YR UP) COVID-19 VACCINE - EMERGENCY USE AUTHORIZATION, MRNA, [id number](PF) 30 MCG/0.3 ML IM SUSP 07/03/2020,06/07/2020 INFLUENZA VACCINE QUADRIVALE NT 3 YR UP PF IM 12/21/2018 INFLUENZA VACCINE QUADRIVALENT 6 MOS UP IM 12/21 INFLUENZA VACCINE QUADRIVALE NT 6 MOS UP PF IM 11/25/2019,11/27/2017,11/26/2017 Influenza Seasonal Unspecifi ed Formulation IM 12/17/2013,12/31/2012 Influenza Seasonal Unspecifi ed Formulation PF IM 01/05/2016,01/05/2015 Family History Medical History Relation Name Comments Healthy Mother Relation Name Status Comments Mother Alive Social History Tobacco Use Types Packs/Day Years Used Date Smoking Tobacco: Never Passive Smoke Exposure: Never Smokeless Tobacco: Never Tobacco Cessation:Counseling Given: Not Answered Alcohol Use Standard Drinks/Week Comments Never 0 (1 standard drink = 0.6 oz pur e alcohol) Comments No Sex and Gender Information Value Date Recorded Sex Assigned at Not on file Legal Sex Female 4:56 AM TESTS SUPERINTENDENT Gender Identity Not on file Sexual Orientation Not on file Last Filed Vital Signs Vital Sign Reading Time Taken Comments Blood Pressure 116/82 10/27/2024 10:11 AM CDT Pulse 65 11/16/2020 6:01 PM CDT Temperature 36.2 C (97.2 F) 11/16/2020 6:01 PM CDT Respiratory Rate 16 11/16/2020 6:01 PM CDT Oxygen Saturation 100% 11/16/2020 6:01 PM CDT Inhaled Oxygen Concentration - - Weight 99.5 kg (219 lb 6.4 oz) 10/27/2024 10:11 AM CDT Height 163.8 cm (5' 4.5) 10/27/2024 10:11 AM CD T Body Mass Index 37.08 10/27/2024 10:11 AM CDT Plan of Treatment Upcoming Encounters Date Type Department Care Team (Late st Contact Info) Description 10/27/2025 9:45 AM CDT Office Visit [facility] REGIONAL GUIDE - Medical [place] [address] [facility] [address] [place] [address] Eli Escobar MD [address] [place] [address] Health Maintenance Due Date Last Done Comments Pre-Diabetes and Diabetes Screening 1973 DTAP/TDAP/TD VACCINES (1 - Tdap) 01/29/1992 HEPATITIS B VACCINES (1 of 3 - 19+ 3-dose series) 01/29/1992 COLORECTAL SCREENING 2018 Colorectal Cancer Screening 2018 FIT-DNA Q 3 years 2018 FIT/FOBT Q 1 year 2018 Flex Sig/CT Colonography Q 5 years 2018 ZOSTER VACCINE (1 of 2) 2023 INFLUENZA VACCINE (#1) 2024 0, 12/21/2018, 12/21/2018, Additional history exists COVID-19 Vaccine (2024-2 6 season) 2024 07/03/2020, 06/07/2020 BREAST CANCER SCREENING 11/27/2024 11/28/19 24, 10/02/2022, 08/17/2021, Additional history exists PAP SMEAR 10/28/2027 10/27/2024, 07/24, 08/14/2022, Additional history exists CERVICAL CANCER SCREENING 10/27/2029 HPV/Cotest (21-29) 10/27/2029 10/27/2024, 0 08/16/2023, 08/14/2022, Additional history exists HPV/Cotest (30-65) 10/27/2029 10/27/2024, 0 08/16/2023, 08/14/2022, Additional history exists Procedures Procedure Name Priority Date/Time Associated Diagnosis Comments CERV/VAG CYTO SCREEN PAP RLFX HPV Routine 10/27/2024 10:43 AM CDT Encounter for gynecological examination without abnormal finding MAMMO 3D ANJALI SCREEN BILAT W OR WO CAD Routine 11/28/2023 8:30 AM CDT from Last 3 Months or Most Recently Relevant to Health Maintenance Results * CERV/VAG CYTO SCREEN PAP RLFX HPV (10/27/2024 10:43 AM CDT) CLINICAL INFORMATION Kem Baron Comment:None given LAST MENSTRUAL PERIOD Kem Baron Comment:NONE GIVEN PREV PAP: Kem Baron Comment:NONE GIVEN PREV BX: Kem Baron Comment:NONE GIVEN SOURCE Kem Baron Comment:ENDOCERVIX ADEQUACY: Kem Baron Comment: Satisfactory for evaluation. Endocervical/transformation zone component present. Age and/or menstrual status not provided PAP INTERP Kem Baron Comment: Cytology Results: Negative for intraepithelial lesion or malignancy. COMMENT (PAP TEST) Q uamalia Baron Comment: This Pap test has been evaluated with the ThinPrep(R) Imaging System. CIGAR BANDER: Steve Baron Comment: MMD, CT(ASCP) CT Screening Location: [place] [address] [place] [address] CLIA: [id number] Slide preparation performed at: [email or web address], [address] [place] [address], [address] CLIA: [id number] REVIEW CIGAR BANDER: Kem Baron Comment: TMK, CT(ASCP) CT Screening Location: [place] [address] [place] [address] CLIA: [id number] Slide preparation performed at: [email or web address], [address] [place] [address], [address] CLIA: [id number] EXPLANATORY NOTE Que st Felipe Baron Comment: EXPLANATORY NOTE: The Pap is a screening test for cervical cancer. It is not a diagnostic test and is subject to false negative and false positive results. It is most reliable when a satisfactory sample, regularly obtained, is submitted with relevant clinical findings and history, and when the Pap result is evaluated along with historic and current clinical information. Test Performed at: [email or web address] [address] [address] Rose-Divya Thi Vo Genital SWAB OF ENDOCERVIX / Unknown 10/27/2024 10:43 AM CDT 10/28/2024 6:50 PM CDT Samantha Christianson NP PATHOLOGY/CYTOLOGY ORDERABL ES Final Result [facility] [phone] [email or web address] [address] [place] [address] * MAMMO 3D ANJALI SCREEN BILAT W OR WO CAD (11/28/2023 8:30 AM CDT) Anatomical Region Laterality Modality Breast Bilateral Mammography Roberto Sosa MD MAMMO ORDERABLES Final Resul t from Last 3 Months or Most Recently Relevant to Health Maintenance [place] [address] [facility] BLUE ACCESS CHOICE Advance Directives For more information, please contact: [phone] * Full Code (Latest Code Status on File) Date Activated Date Inactivated Comments 11/16/2020 5:00 PM 11/16/2020 8:09 PM Care Teams Golf Ball Winder Relationship Specialty Start Date End Date Mejia Mcgarry MD PCP - General Family Practice 11/04/20
--- OUTSIDE RECORDS SUMMARY | 2024-11-24 15:55 | XMS_ITS | Encounter Summary ---
Author Organization [facility] Address [address] [place] [address] Care Team Providers Care Vice President Network Development Name Role Phone Mejia Mcgarry MD Primary Care Provider +1- [phone] Encounter Details Date Type Department Care Team (Late Contact Info) Description 03/21/2000 Outpatient Historical [facility] Family Medicine - [facility] [address] [facility] [place] [address] Kenisha Rosado MD [address] [place] [address] Social History Tobacco Use Types Packs/Day Years Used Date Smoking Tobacco: Never Assessed Comments Unknown Sex and Gender Information Value Date Recorded Sex Assigned at Not on file Legal Sex Female 4:56 AM SPINDLE TESTER Gender Identity Not on file Sexual Orientation Not on file documented as of this encounter Plan of Treatment Upcoming Encounters Date Type Department Care Team (Late st Contact Info) Description 10/27/2025 9:45 AM CDT Office Visit [facility] SEARCH ENGINEER - Medical [place] [address] [place] [address] Eli Escobar MD [address] [place] [address] documented as of this encounter Visit Diagnoses Not on filedocumented in this encounter Care Teams Vice President Network Development Relationship Specialty Start Date End Date Mejia Mcgarry MD PCP - General Family Practice 11/04/20 documented as of this encounter
--- OUTSIDE RECORDS SUMMARY | 2024-11-24 15:55 | XMS_ITS | Encounter Summary ---
Author Organization [facility] Address [address] [place] [address] Care Team Providers Care Solar Installation Manager Name Role Phone Mejia Mcgarry MD Primary Care Provider +1- [phone] Encounter Details Date Type Department Care Team (Latest Contact Info) Description 04/07/1999 Outpatient Historical [facility] GRACE Verdin, Leonel Farrell MD NO ADDRESS ON FILE Other screening (Primary Dx) Social History Tobacco Use Types Packs/Day Years Used Date Smoking Tobacco: Never Assessed Comments Unknown Sex and Gender Information Value Date Recorded Sex Assigned at Not on file Legal Sex Female 4:56 AM SINGLE ENDING MACHINE OPERATOR Gender Identity Not on file Sexual Orientation Not on file documented as of this encounter Plan of Treatment Upcoming Encounters Date Type Department Care Team (Late st Contact Info) Description 10/27/2025 9:45 AM CDT Office Visit [facility] MOTHER TESTER - Medical [place] [address] [facility] [address] [place] [address] Eli Escobar MD [address] [place] [address] documented as of this encounter Visit Diagnoses Diagnosis Other screening- Primary Other specified screening documented in this encounter Care Teams Solar Installation Manager Relationship Specialty Start Date End Date Mejia Mcgarry MD PCP - General Family Practice 11/04/20 documented as of this encounter
--- OUTSIDE RECORDS SUMMARY | 2024-11-24 15:55 | XMS_ITS | Encounter Summary ---
Author Organization [facility] Address [address] [place] [address] Care Team Providers Care Superintendent Operations Division Name Role Phone Mejia Mcgarry MD Primary Care Provider +1- [phone] Encounter Details Date Type Department Care Team (Latest Contact Info) Description 12/29/2002 Inpatient Historical [facility] PATIENT IN A BED Roberto Sosa MD [address] [place] [address] EARLY ONSET DELIVERY-DEL (Primary Dx) Social History Tobacco Use Types Packs/Day Years Used Date Smoking Tobacco: Never Assessed Comments Unknown Sex and Gender Information Value Date Recorded Sex Assigned at Not on file Legal Sex Female 4:56 AM GLASSIE Gender Identity Not on file Sexual Orientation Not on file documented as of this encounter Plan of Treatment Upcoming Encounters Date Type Department Care Team (Late st Contact Info) Description 10/27/2025 9:45 AM CDT Office Visit [facility] REHANGER - Medical [place] [address] [address] Eli Escobar MD [facility] [address] [address] documented as of this encounter Visit Diagnoses Diagnosis Early onset of delivery, delivered, with or without mention of antepartum condition- Primary documented in this encounter Care Teams Superintendent Operations Division Relationship Specialty Start Date End Date Mejia Mcgarry MD PCP - General Family Practice 11/04/20 documented as of this encounter
--- OUTSIDE RECORDS SUMMARY | 2024-11-24 15:55 | XMS_ITS | Encounter Summary ---
Author Organization [facility] Address [address] [place] [address] Care Team Providers Care Mechanical Operator Name Role Phone Mejia Mcgarry MD Primary Care Provider +1- [phone] Encounter Details Date Type Department Care Team (Late Contact Info) Description 04/01/2000 Outpatient Historical [facility] Family Medicine - [facility] [address] [employer] [address] [place] [address] Kenisha Rosado MD [address] [place] [address] Social History Tobacco Use Types Packs/Day Years Used Date Smoking Tobacco: Never Assessed Comments Unknown Sex and Gender Information Value Date Recorded Sex Assigned at Not on file Legal Sex Female 4:56 AM RISK CONTROL FIELD REPRESENTATIVE Gender Identity Not on file Sexual Orientation Not on file documented as of this encounter Plan of Treatment Upcoming Encounters Date Type Department Care Team (Late st Contact Info) Description 10/27/2025 9:45 AM CDT Office Visit [facility] PHOTOGRAMMETRY AIRPLANE PILOT - Medical [place] [address] [place] [address] Eli Escobar MD [address] [place] [address] documented as of this encounter Visit Diagnoses Not on filedocumented in this encounter Care Teams Mechanical Operator Relationship Specialty Start Date End Date Mejia Mcgarry MD PCP - General Family Practice 11/04/20 documented as of this encounter
--- OUTSIDE RECORDS SUMMARY | 2024-11-24 15:55 | XMS_ITS | Clinical Summary ---
Author Organization [facility] Address [address] [place] [address] Care Team Providers Care Time Study Observer Name Role Phone Mejia Mcgarry MD Primary Care Provider +1 -[phone] Allergies Active Allergy Reactions Criticality Noted Date Comments Cephalexin Swelling Medium 11/23/2020 Reported on 11/23/2020 Medications valACYclovir (VALTREX) 1 gram tablet TK 1 T PO Q 24 HOURS 3 10/15/2018 Active ibuprofen (ADVIL,MOTRIN) 800 mg tablet Take by mouth every 6 (six) hours as needed 12/05/2020 Active indomethacin SR (INDOCIN SR) 75 mg CR capsule TAKE 1 CAPSULE(75 MG) BY MOUTH TWICE DAILY WITH MEALS 60 capsule 06/19/2021 Active Active Problems Problem Noted Date Diagnosed Date Bulging lumbar disc 02/03/2021 Assessment & Plan (02/03/2021 11:37 AM COUNTERINTELLIGENCE ANALYST): Patient says that she has a bulging disc but thought that she was not having any issues with that. She is having a sharp shooting pain down her left leg. There is a chance that it is due to this disc. Symptom of leg swelling 01/26/2021 Assessment & Plan (02/03/2021 11:38 AM COUNTERINTELLIGENCE ANALYST): Patient does have leg swelling of the left lower extremity but it is currently well controlled with her compression stockings. She does not have any significant dilation or reflux of the greater small saphenous veins of the left lower extremity. She can follow-up with me as needed. Continue to wear compression stockings at this time. Assessment & Plan (01/26/2021 3:35 PM CDT): Patient has symptomatic swelling of her left lower extremity specially at the ankle by the end of the day. She is going to wear compression stockings and keep her leg elevated when she is not walking around. Venous insufficiency 01/26/2021 Assessment & Plan (02/03/2021 11:38 AM COUNTERINTELLIGENCE ANALYST): Patient does not have any significant venous insufficiency as evidence by her left lower extremity standing venous reflux study. Assessment & Plan (01/26/2021 3:34 PM CDT): Patient very likely could have venous insufficiency and she will wear compression stockings daily for the next 3 months in follow-up at that time with a venous reflux study. 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 Basal cell carcinoma, forehead 10/26/2020 Immunizations Immunization Administration Dates Next Due Influenza, Quadrivalent, Spl it, Intramuscular 12/21/2018 Influenza, Quadrivalent, Spl it, Preservative Free, Intramuscular 11/25/2019,11/27/2017,11/26/2017 Influenza, Trivalent, IM (MDV) 12/17/2013,2012 Influenza, Trivalent, Preser vative Free, Intramuscular 01/05/2016,01/05/2015 Surgical History Surgery Date Site/Laterality Comments ABLATION Medical History Medical History Date Comments No known health problems Family History Medical History Relation Name Comments Arthritis Mother Relation Name Status Comments Mother Social History Tobacco Use Types Packs/Day Years Used Date Smoking Tobacco: Never Smokeless Tobacco: Never Personal Safety Answer Date Recorded Getting School Help Needed Not on file 06/08 Comments Unknown Sex and Gender Information Value Date Recorded Sex Assigned at Not on file Legal Sex Female 3:32 PM CDT Gender Identity Not on file Sexual Orientation Not on file Obstetrics History Last Filed Vital Signs Vital Sign Reading Time Taken Comments Blood Pressure 140/98 02/01/2021 1:12 PM COUNTERINTELLIGENCE ANALYST Pulse 90 02/01/2021 1:12 PM COUNTERINTELLIGENCE ANALYST Temperature - - Respiratory Rate - - Oxygen Saturation - - Inhaled Oxygen Concentration - - Weight 113.4 kg (250 lb) 02/01/2021 1:12 PM COUNTERINTELLIGENCE ANALYST Height 165.1 cm (5' 5) 02/01/2021 1:12 PM COUNTERINTELLIGENCE ANALYST Body Mass Index 41.6 02/01/2021 1:12 PM COUNTERINTELLIGENCE ANALYST Plan of Treatment Not on file Insurance ANTHEM ACCESS CHOICE ANTHEM ACCESS CHOICE BLUE ACC CHO[place] [address] [employer] ACCESS CHOICE Care Teams Time Study Observer Relationship Specialty Start Date End Date Mejia Mcgarry MD PCP - General Family Medicine 11/13/17
--- OUTSIDE RECORDS SUMMARY | 2024-11-24 15:55 | XMS_ITS | Encounter Summary ---
Author Organization [facility] Address [address] [place] [address] Care Team Providers Care Mapping Editor Name Role Phone Mejia Mcgarry MD Primary Care Provider +1- [phone] Encounter Details Date Type Department Care Team (Late Contact Info) Description 01/24/1999 Outpatient Historical [facility] Family Medicine - [facility] [address] [facility] [place] [address] Kenisha Rosado MD [address] [place] [address] Social History Tobacco Use Types Packs/Day Years Used Date Smoking Tobacco: Never Assessed Comments Unknown Sex and Gender Information Value Date Recorded Sex Assigned at Not on file Legal Sex Female 4:56 AM CARTOON DESIGNER Gender Identity Not on file Sexual Orientation Not on file documented as of this encounter Plan of Treatment Upcoming Encounters Date Type Department Care Team (Late st Contact Info) Description 10/27/2025 9:45 AM CDT Office Visit [facility] CLAIMS AGENT RIGHT OF WAY - Medical [place] [address] [place] [address] Eli Escobar MD [address] [place] [address] documented as of this encounter Visit Diagnoses Not on filedocumented in this encounter Care Teams Mapping Editor Relationship Specialty Start Date End Date Mejia Mcgarry MD PCP - General Family Practice 11/04/20 documented as of this encounter
--- OUTSIDE RECORDS SUMMARY | 2024-11-24 15:55 | XMS_ITS | Encounter Summary ---
Author Organization [facility] Address [address] [place] [address] Care Team Providers Care Dredge Captain Name Role Phone Mejia Mcgarry MD Primary Care Provider +1- [phone] Encounter Details Date Type Department Care Team (Late Contact Info) Description 03/10/2003 Outpatient Historical [facility] Family Medicine - [facility] [address] [facility] [place] [address] Kenisha Rosado MD [address] [place] [address] Social History Tobacco Use Types Packs/Day Years Used Date Smoking Tobacco: Never Assessed Comments Unknown Sex and Gender Information Value Date Recorded Sex Assigned at Not on file Legal Sex Female 4:56 AM USER EXPERIENCE ARCHITECT Gender Identity Not on file Sexual Orientation Not on file documented as of this encounter Plan of Treatment Upcoming Encounters Date Type Department Care Team (Late st Contact Info) Description 10/27/2025 9:45 AM CDT Office Visit [facility] CLINICAL LAB CLERK - Medical [place] [address] [place] [address] Eli Escobar MD [address] [place] [address] documented as of this encounter Visit Diagnoses Not on filedocumented in this encounter Care Teams Dredge Captain Relationship Specialty Start Date End Date Mejia Mcgarry MD PCP - General Family Practice 11/04/20 documented as of this encounter
--- OUTSIDE RECORDS SUMMARY | 2024-11-24 15:55 | XMS_ITS | Encounter Summary ---
Author Organization [facility] Address [address] [place] [address] Care Team Providers Care Fur Tinter Name Role Phone Mejia Mcgarry MD Primary Care Provider +1- [phone] Encounter Details Date Type Department Care Team (Late Contact Info) Description 03/11/2001 Outpatient Historical [facility] Family Medicine - [facility] [address] [facility] [place] [address] Kenisha Rosado MD [address] [place] [address] Social History Tobacco Use Types Packs/Day Years Used Date Smoking Tobacco: Never Assessed Comments Unknown Sex and Gender Information Value Date Recorded Sex Assigned at Not on file Legal Sex Female 4:56 AM CATALYST OPERATOR Gender Identity Not on file Sexual Orientation Not on file documented as of this encounter Plan of Treatment Upcoming Encounters Date Type Department Care Team (Late st Contact Info) Description 10/27/2025 9:45 AM CDT Office Visit [facility] LINER INSTALLER - Medical [place] [address] [place] [address] Eli Escobar MD [address] [place] [address] documented as of this encounter Visit Diagnoses Not on filedocumented in this encounter Care Teams Fur Tinter Relationship Specialty Start Date End Date Mejia Mcgarry MD PCP - General Family Practice 11/04/20 documented as of this encounter
--- OUTSIDE RECORDS SUMMARY | 2024-11-24 15:55 | XMS_ITS | Encounter Summary ---
Author Organization [facility] Address [address] [place] [address] Care Team Providers Care Talking Books Library Clerk Name Role Phone Mejia Mcgarry MD Primary Care Provider +1- [phone] Encounter Details Date Type Department Care Team (Late Contact Info) Description 08/04/1999 Outpatient Historical [facility] Family Medicine - [facility] [address] [facility] [place] [address] Kenisha Rosado MD [address] [place] [address] Social History Tobacco Use Types Packs/Day Years Used Date Smoking Tobacco: Never Assessed Comments Unknown Sex and Gender Information Value Date Recorded Sex Assigned at Not on file Legal Sex Female 4:56 AM NUCLEAR EQUIPMENT SALES ENGINEER Gender Identity Not on file Sexual Orientation Not on file documented as of this encounter Plan of Treatment Upcoming Encounters Date Type Department Care Team (Late st Contact Info) Description 10/27/2025 9:45 AM CDT Office Visit [facility] DIAL BRUSHER - Medical [place] [address] [place] [address] Eli Escobar MD [address] [place] [address] documented as of this encounter Visit Diagnoses Not on filedocumented in this encounter Care Teams Talking Books Library Clerk Relationship Specialty Start Date End Date Mejia Mcgarry MD PCP - General Family Practice 11/04/20 documented as of this encounter
--- OUTSIDE RECORDS SUMMARY | 2024-11-24 15:55 | XMS_ITS | Encounter Summary ---
Author Organization [facility] Address [address] [place] [address] Care Team Providers Care Associate Professor Of Archaeology Name Role Phone Mejia Mcgarry MD Primary Care Provider +1- [phone] Encounter Details Date Type Department Care Team (Latest Contact Info) Description 06/28/1999 Outpatient Historical [facility] Roberto Meza MD [address] [place] [address] Other screening (Primary Dx) Social History Tobacco Use Types Packs/Day Years Used Date Smoking Tobacco: Never Assessed Comments Unknown Sex and Gender Information Value Date Recorded Sex Assigned at Not on file Legal Sex Female 4:56 AM BALANCE STAFF STAKER Gender Identity Not on file Sexual Orientation Not on file documented as of this encounter Plan of Treatment Upcoming Encounters Date Type Department Care Team (Late st Contact Info) Description 10/27/2025 9:45 AM CDT [facility] SUPERVISOR PHOTOCOMPOSITION - Medical [place] [address] [address] Eli Escobar MD [facility] [address] [address] documented as of this encounter Visit Diagnoses Diagnosis Other screening- Primary Other specified screening documented in this encounter Care Teams Associate Professor Of Archaeology Relationship Specialty Start Date End Date Mejia Mcgarry MD PCP - General Family Practice 11/04/20 documented as of this encounter
== END 2024-11-24 15:53 | disposition home or self-care (01) ==
LOC: ANHGOSHLAB 15:53
PROVIDERS: PCP Family Medicine; Visit Provider Nurse Practitioner Family
DX: R16.1 Splenomegaly, not elsewhere classified (principal); R10.9 Unspecified abdominal pain
CPT/HCPCS: 36415

== ENCOUNTER 2024-12-02 07:32 | Outpatient (CLI) | payer BC, SELFPAY ==
--- NOTE | ~2024-12-02 | MM_ITS ---
EXAMINATION: MM screening fabienne BI w aurelia HISTORY: Screening TECHNIQUE: Craniocaudal and mediolateral oblique 3-D tomosynthesis images were obtained and synthetic 2-D images were generated. CAD analysis was submitted and interpreted. COMPARISON: Comparison to multiple prior studies sequentially, with oldest reviewed study dated , 07/29/2018 BREAST PARENCHYMAL COMPOSITION: There are scattered areas of fibroglandular density. FINDINGS: There is no evidence of suspicious mass, calcification, or architectural distortion to suggest malignancy in either breast. IMPRESSION: 1. No mammographic evidence of malignancy. 2. Recommend routine screening mammography in one year. BI-RADS Category 1: Negative Reviewed, dictated and finalized at location B.
--- OUTSIDE RECORDS SUMMARY | 2024-12-02 07:52 | XMS_ITS | Encounter Summary ---
Author Organization [facility] Address [address] [place] [address] Care Team Providers Care Hematology Oncology Consultant Name Role Phone Mejia Mcgarry MD Primary Care Provider +1- [phone] Encounter Details Date Type Department Care Team (Latest Contact Info) Description 12/22/1999 Outpatient Historical [facility] Roberto Sosa MD [facility] [address] [address] Abnormal findings on screening (Primary Dx) Social History Tobacco Use Types Packs/Day Years Used Date Smoking Tobacco: Never Assessed Comments Unknown Sex and Gender Information Value Date Recorded Sex Assigned at Not on file Legal Sex Female 4:56 AM REAL PROPERTY EVALUATOR Gender Identity Not on file Sexual Orientation Not on file documented as of this encounter Plan of Treatment Upcoming Encounters Date Type Department Care Team (Late st Contact Info) Description 10/27/2025 9:45 AM CDT Office Visit [facility] CONSTRUCTION PROJECT MGR - Medical [place] [address] [facility] [address] [place] [address] Eli Escobar MD [address] [facility] [address] [place] [address] documented as of this encounter Visit Diagnoses Diagnosis Abnormal findings on screening- Primary documented in this encounter Care Teams Hematology Oncology Consultant Relationship Specialty Start Date End Date Mejia Mcgarry MD PCP - General Family Practice 11/04/20 documented as of this encounter
--- OUTSIDE RECORDS SUMMARY | 2024-12-02 07:52 | XMS_ITS | Encounter Summary ---
Author Organization [facility] Address [address] [place] [address] Care Team Providers Care Hat And Cap Sewer Name Role Phone Mejia Mcgarry MD Primary Care Provider +1- [phone] Encounter Details Date Type Department Care Team (Late Contact Info) Description 03/27/1999 Outpatient Historical [facility] Family Medicine - [facility] [address] [facility] [place] [address] Kenisha Rosado MD [address] [place] [address] Social History Tobacco Use Types Packs/Day Years Used Date Smoking Tobacco: Never Assessed Comments Unknown Sex and Gender Information Value Date Recorded Sex Assigned at Not on file Legal Sex Female 4:56 AM SINGING WAITER OR WAITRESS Gender Identity Not on file Sexual Orientation Not on file documented as of this encounter Plan of Treatment Upcoming Encounters Date Type Department Care Team (Late st Contact Info) Description 10/27/2025 9:45 AM CDT Office Visit [facility] INTEGRATED CIRCUIT LAYOUT DESIGNER - Medical [place] [address] [place] [address] Eli Escobar MD [address] [place] [address] documented as of this encounter Visit Diagnoses Not on filedocumented in this encounter Care Teams Hat And Cap Sewer Relationship Specialty Start Date End Date Mejia Mcgarry MD PCP - General Family Practice 11/04/20 documented as of this encounter
--- OUTSIDE RECORDS SUMMARY | 2024-12-02 07:52 | XMS_ITS | Encounter Summary ---
Author Organization [facility] Address [address] [place] [address] Care Team Providers Care Information Technology Associate Name Role Phone Mejia Mcgarry MD Primary Care Provider +1- [phone] Encounter Details Date Type Department Care Team (Late Contact Info) Description 08/29/1998 Outpatient Historical [facility] Family Medicine - [facility] [address] [facility] [place] [address] Kenisha Rosado MD [address] [place] [address] Social History Tobacco Use Types Packs/Day Years Used Date Smoking Tobacco: Never Assessed Comments Unknown Sex and Gender Information Value Date Recorded Sex Assigned at Not on file Legal Sex Female 4:56 AM COMPUTER PROGRAMMER CHIEF Gender Identity Not on file Sexual Orientation Not on file documented as of this encounter Plan of Treatment Upcoming Encounters Date Type Department Care Team (Late st Contact Info) Description 10/27/2025 9:45 AM CDT Office Visit [facility] MOVERS - Medical [place] [address] [place] [address] Eli Escobar MD [address] [place] [address] documented as of this encounter Visit Diagnoses Not on filedocumented in this encounter Care Teams Information Technology Associate Relationship Specialty Start Date End Date Mejia Mcgarry MD PCP - General Family Practice 11/04/20 documented as of this encounter
--- OUTSIDE RECORDS SUMMARY | 2024-12-02 07:52 | XMS_ITS | Encounter Summary ---
Author Organization [facility] Address [address] [place] [address] Care Team Providers Care Trim Stencil Maker Name Role Phone Mejia Mcgarry MD Primary Care Provider +1- [phone] Encounter Details Date Type Department Care Team (Latest Contact Info) Description 11/29/1999 Inpatient Historical [facility] Roberto Sosa MD [address] [place] [address] Short cord complicating labor and delivery, delivered (Primary Dx) Social History Tobacco Use Types Packs/Day Years Used Date Smoking Tobacco: Never Assessed Comments Unknown Sex and Gender Information Value Date Recorded Sex Assigned at Not on file Legal Sex Female 4:56 AM FOSTER CARE SOCIAL WORKER Gender Identity Not on file Sexual Orientation Not on file documented as of this encounter Plan of Treatment Upcoming Encounters Date Type Department Care Team (Late st Contact Info) Description 10/27/2025 9:45 AM CDT Office Visit [facility] EDUCATIONAL RESOURCE CENTER TEACHER - Medical [place] [address] [facility] [address] [place] [address] Eli Escobar MD [facility] [address] [address] documented as of this encounter Visit Diagnoses Diagnosis Short cord complicating labor and delivery, delivered- Primary documented in this encounter Care Teams Trim Stencil Maker Relationship Specialty Start Date End Date Mejia Mcgarry MD PCP - General Family Practice 11/04/20 documented as of this encounter
--- OUTSIDE RECORDS SUMMARY | 2024-12-02 07:52 | XMS_ITS | Encounter Summary ---
Author Organization [facility] Address [address] [place] [address] Care Team Providers Care Channel Machine Operator Name Role Phone Mejia Mcgarry MD Primary Care Provider +1- [phone] Encounter Details Date Type Department Care Team (Latest Contact Info) Description 04/07/1999 Outpatient Historical [facility] Verdin, Leonel Farrell MD NO ADDRESS ON FILE Other screening (Primary Dx) Social History Tobacco Use Types Packs/Day Years Used Date Smoking Tobacco: Never Assessed Comments Unknown Sex and Gender Information Value Date Recorded Sex Assigned at Not on file Legal Sex Female 4:56 AM DIRECTOR OF CATERING SALES Gender Identity Not on file Sexual Orientation Not on file documented as of this encounter Plan of Treatment Upcoming Encounters Date Type Department Care Team (Late st Contact Info) Description 10/27/2025 9:45 AM CDT Office Visit [facility] TAWER - Medical [place] [address] [facility] [address] [place] [address] Eli Escobar MD [address] [facility] [address] [place] [address] documented as of this encounter Visit Diagnoses Diagnosis Other screening- Primary Other specified screening documented in this encounter Care Teams Channel Machine Operator Relationship Specialty Start Date End Date Mejia Mcgarry MD PCP - General Family Practice 11/04/20 documented as of this encounter
--- OUTSIDE RECORDS SUMMARY | 2024-12-02 07:52 | XMS_ITS | Encounter Summary ---
Author Organization [facility] Address [address] [place] [address] Care Team Providers Care Boat Engine Mechanic Name Role Phone Mejia Mcgarry MD Primary Care Provider +1- [phone] Encounter Details Date Type Department Care Team (Latest Contact Info) Description 06/28/1999 Outpatient Historical [facility] Roberto Meza MD [address] [place] [address] Other screening (Primary Dx) Social History Tobacco Use Types Packs/Day Years Used Date Smoking Tobacco: Never Assessed Comments Unknown Sex and Gender Information Value Date Recorded Sex Assigned at Not on file Legal Sex Female 4:56 AM THERMOMETER PRODUCTION WORKER Gender Identity Not on file Sexual Orientation Not on file documented as of this encounter Plan of Treatment Upcoming Encounters Date Type Department Care Team (Late st Contact Info) Description 10/27/2025 9:45 AM CDT Office Visit [facility] FUEL CELL SYSTEMS ENGINEER - Medical [place] [address] [address] Eli Escobar MD [facility] [address] [address] documented as of this encounter Visit Diagnoses Diagnosis Other screening- Primary Other specified screening documented in this encounter Care Teams Boat Engine Mechanic Relationship Specialty Start Date End Date Mejia Mcgarry MD PCP - General Family Practice 11/04/20 documented as of this encounter
--- OUTSIDE RECORDS SUMMARY | 2024-12-02 07:52 | XMS_ITS | Encounter Summary ---
Author Organization [facility] Address [address] [place] [address] Care Team Providers Care Quality Assurance Advisor Name Role Phone Mejia Mcgarry MD Primary Care Provider +1- [phone] Encounter Details Date Type Department Care Team (Late Contact Info) Description 08/04/1999 Outpatient Historical [facility] Family Medicine - [facility] [address] [facility] [place] [address] Kenisha Rosado MD [address] [place] [address] Social History Tobacco Use Types Packs/Day Years Used Date Smoking Tobacco: Never Assessed Comments Unknown Sex and Gender Information Value Date Recorded Sex Assigned at Not on file Legal Sex Female 4:56 AM CERTIFIED MEDICATION TECHNICIAN Gender Identity Not on file Sexual Orientation Not on file documented as of this encounter Plan of Treatment Upcoming Encounters Date Type Department Care Team (Late st Contact Info) Description 10/27/2025 9:45 AM CDT Office Visit [facility] SPEECH AND LANGUAGE ASSISTANT - Medical [place] [address] [place] [address] Eli Escobar MD [address] [place] [address] documented as of this encounter Visit Diagnoses Not on filedocumented in this encounter Care Teams Quality Assurance Advisor Relationship Specialty Start Date End Date Mejia Mcgarry MD PCP - General Family Practice 11/04/20 documented as of this encounter
--- OUTSIDE RECORDS SUMMARY | 2024-12-02 07:52 | XMS_ITS | Encounter Summary ---
Author Organization [facility] Address [address] [place] [address] Care Team Providers Care Annealing Furnace Operator Name Role Phone Mejia Mcgarry MD Primary Care Provider +1- [phone] Encounter Details Date Type Department Care Team [...] on file Legal Sex Female 4:56 AM METAL FABRICATOR Gender Identity Not on file Sexual Orientation Not on file documented as of this encounter Plan of Treatment Upcoming Encounters Date Type Department Care Team (Late st Contact Info) Description 10/27/2025 9:45 AM CDT Office Visit [facility] CHIEF COUNSEL - Medical [place] [address] [facility] [address] [place] [address] Eli Escobar MD [address] [facility] [address] [place] [address] documented as of this encounter Visit Diagnoses Diagnosis Screening for malignant neoplasm of the cervix- Primary documented in this encounter Care Teams Annealing Furnace Operator Relationship Specialty Start Date End Date Mejia Mcgarry MD PCP - General Family Practice 11/04/20 documented as of this encounter
--- OUTSIDE RECORDS SUMMARY | 2024-12-02 07:52 | XMS_ITS | Encounter Summary ---
Author Organization [facility] Address [address] [place] [address] Care Team Providers Care Supervisor Engraving Name Role Phone Mejia Mcgarry MD Primary Care Provider +1- [phone] Encounter Details Date Type Department Care Team (Latest Contact Info) Description 08/11/1999 Outpatient Historical [facility] Roberto Sosa MD [facility] [address] [address] Unspecified high-risk (Primary Dx) Social History Tobacco Use Types Packs/Day Years Used Date Smoking Tobacco: Never Assessed Comments Unknown Sex and Gender Information Value Date Recorded Sex Assigned at Not on file Legal Sex Female 4:56 AM SUPERVISOR FARM EQUIPMENT MAINTENANCE Gender Identity Not on file Sexual Orientation Not on file documented as of this encounter Plan of Treatment Upcoming Encounters Date Type Department Care Team (Late st Contact Info) Description 10/27/2025 9:45 AM CDT Office Visit [facility] CONTROL ROOM OPERATOR - Medical [place] [address] [address] Eli Escobar MD [address] [address] documented as of this encounter Visit Diagnoses Diagnosis Unspecified high-risk - Primary documented in this encounter Care Teams Supervisor Engraving Relationship Specialty Start Date End Date Mejia Mcgarry MD PCP - General Family Practice 11/04/20 documented as of this encounter
--- OUTSIDE RECORDS SUMMARY | 2024-12-02 07:52 | XMS_ITS | Encounter Summary ---
Author Organization [facility] Address [address] [place] [address] Care Team Providers Care Air Quality Consultant Name Role Phone Mejia Mcgarry MD Primary Care Provider +1- [phone] Encounter Details Date Type Department Care Team (Latest Contact Info) Description 11/20/1999 Outpatient Historical [facility] Roberto Sosa MD [facility] [address] [address] Abnormal findings on screening (Primary Dx) Social History Tobacco Use Types Packs/Day Years Used Date Smoking Tobacco: Never Assessed Comments Unknown Sex and Gender Information Value Date Recorded Sex Assigned at Not on file Legal Sex Female 4:56 AM TECHNOLOGY SERVICES MANAGER Gender Identity Not on file Sexual Orientation Not on file documented as of this encounter Plan of Treatment Upcoming Encounters Date Type Department Care Team (Late st Contact Info) Description 10/27/2025 9:45 AM CDT Office Visit [facility] TERRITORY REPRESENTATIVE - Medical [place] [address] [facility] [address] [place] [address] Eli Escobar MD [address] [facility] [address] [place] [address] documented as of this encounter Visit Diagnoses Diagnosis Abnormal findings on screening- Primary documented in this encounter Care Teams Air Quality Consultant Relationship Specialty Start Date End Date Mejia Mcgarry MD PCP - General Family Practice 11/04/20 documented as of this encounter
--- OUTSIDE RECORDS SUMMARY | 2024-12-02 07:52 | XMS_ITS | Encounter Summary ---
Author Organization [facility] Address [address] [place] [address] Care Team Providers Care Heavy Equipment Operating Engineer Name Role Phone Mejia Mcgarry MD Primary Care Provider +1- [phone] Encounter Details Date Type Department Care Team (Late Contact Info) Description 01/01/2000 Outpatient Historical [facility] Family Medicine - [facility] [address] [facility] [place] [address] Kenisha Rosado MD [address] [place] [address] Social History Tobacco Use Types Packs/Day Years Used Date Smoking Tobacco: Never Assessed Comments Unknown Sex and Gender Information Value Date Recorded Sex Assigned at Not on file Legal Sex Female 4:56 AM MAINTENANCE MAN Gender Identity Not on file Sexual Orientation Not on file documented as of this encounter Plan of Treatment Upcoming Encounters Date Type Department Care Team (Late st Contact Info) Description 10/27/2025 9:45 AM CDT Office Visit [facility] MAC DEVELOPER - Medical [place] [address] [place] [address] Eli Escobar MD [address] [place] [address] documented as of this encounter Visit Diagnoses Not on filedocumented in this encounter Care Teams Heavy Equipment Operating Engineer Relationship Specialty Start Date End Date Mejia Mcgarry MD PCP - General Family Practice 11/04/20 documented as of this encounter
--- OUTSIDE RECORDS SUMMARY | 2024-12-02 07:52 | XMS_ITS | Encounter Summary ---
Author Organization [facility] Address [address] [place] [address] Care Team Providers Care Front Office Manager Name Role Phone Mejia Mcgarry MD Primary Care Provider +1- [phone] Encounter Details Date Type Department Care Team (Latest Contact Info) Description 10/19/1999 Outpatient Historical [facility] Roberto Sosa MD [facility] [address] [address] Abnormal findings on screening (Primary Dx) Social History Tobacco Use Types Packs/Day Years Used Date Smoking Tobacco: Never Assessed Comments Unknown Sex and Gender Information Value Date Recorded Sex Assigned at Not on file Legal Sex Female 4:56 AM ACOUSTICAL TILE DRILL PRESS OPERATOR Gender Identity Not on file Sexual Orientation Not on file documented as of this encounter Plan of Treatment Upcoming Encounters Date Type Department Care Team (Late st Contact Info) Description 10/27/2025 9:45 AM CDT Office Visit [facility] NEUROSCIENTIST - Medical [place] [address] [facility] [address] [place] [address] Eli Escobar MD [address] [facility] [address] [place] [address] documented as of this encounter Visit Diagnoses Diagnosis Abnormal findings on screening- Primary documented in this encounter Care Teams Front Office Manager Relationship Specialty Start Date End Date Mejia Mcgarry MD PCP - General Family Practice 11/04/20 documented as of this encounter
--- OUTSIDE RECORDS SUMMARY | 2024-12-02 07:52 | XMS_ITS | Encounter Summary ---
Author Organization [facility] Address [address] [place] [address] Care Team Providers Care Facing Machine Operator Name Role Phone Mejia Mcgarry MD Primary Care Provider +1- [phone] Encounter Details Date Type Department Care Team (Late Contact Info) Description 01/29/2000 Outpatient Historical [facility] Family Medicine - [facility] [address] [facility] [place] [address] Kenisha Rosado MD [address] [place] [address] Social History Tobacco Use Types Packs/Day Years Used Date Smoking Tobacco: Never Assessed Comments Unknown Sex and Gender Information Value Date Recorded Sex Assigned at Not on file Legal Sex Female 4:56 AM TRACK SUBWAY REPAIR SUPERVISOR Gender Identity Not on file Sexual Orientation Not on file documented as of this encounter Plan of Treatment Upcoming Encounters Date Type Department Care Team (Late st Contact Info) Description 10/27/2025 9:45 AM CDT Office Visit [facility] CARPENTRY SPECIALIST - Medical [place] [address] [place] [address] Eli Escobar MD [address] [place] [address] documented as of this encounter Visit Diagnoses Not on filedocumented in this encounter Care Teams Facing Machine Operator Relationship Specialty Start Date End Date Mejia Mcgarry MD PCP - General Family Practice 11/04/20 documented as of this encounter
--- OUTSIDE RECORDS SUMMARY | 2024-12-02 07:52 | XMS_ITS | Encounter Summary ---
Author Organization [facility] Address [address] [place] [address] Care Team Providers Care Vessel Traffic Officer Name Role Phone Mejia Mcgarry MD Primary Care Provider +1- [phone] Encounter Details Date Type Department Care Team (Late Contact Info) Description 12/27/1998 Outpatient Historical [facility] Family Medicine - [facility] [address] [facility] [place] [address] Kenisha Rosado MD [address] [place] [address] Social History Tobacco Use Types Packs/Day Years Used Date Smoking Tobacco: Never Assessed Comments Unknown Sex and Gender Information Value Date Recorded Sex Assigned at Not on file Legal Sex Female 4:56 AM MASTERCAM PROGRAMMER Gender Identity Not on file Sexual Orientation Not on file documented as of this encounter Plan of Treatment Upcoming Encounters Date Type Department Care Team (Late st Contact Info) Description 10/27/2025 9:45 AM CDT Office Visit [facility] TILE CLASSIFIER - Medical [place] [address] [place] [address] Eli Escobar MD [address] [place] [address] documented as of this encounter Visit Diagnoses Not on filedocumented in this encounter Care Teams Vessel Traffic Officer Relationship Specialty Start Date End Date Mejia Mcgarry MD PCP - General Family Practice 11/04/20 documented as of this encounter
--- OUTSIDE RECORDS SUMMARY | 2024-12-02 07:52 | XMS_ITS | Encounter Summary ---
Author Organization [facility] Address [address] [place] [address] Care Team Providers Care Laborer Poultry Hatchery Name Role Phone Mejia Mcgarry MD Primary Care Provider +1- [phone] Encounter Details Date Type Department Care Team (Latest Contact Info) Description 09/12/1999 Outpatient Historical [facility] Roberto Sosa MD [facility] [address] [address] Unspecified high-risk (Primary Dx) Social History Tobacco Use Types Packs/Day Years Used Date Smoking Tobacco: Never Assessed Comments Unknown Sex and Gender Information Value Date Recorded Sex Assigned at Not on file Legal Sex Female 4:56 AM REPROGRAPHICS ASSOCIATE Gender Identity Not on file Sexual Orientation Not on file documented as of this encounter Plan of Treatment Upcoming Encounters Date Type Department Care Team (Late st Contact Info) Description 10/27/2025 9:45 AM CDT Office Visit [facility] APPLICATIONS SCIENTIST - Medical [place] [address] [place] [address] [address] Eli Escobar MD [facility] [address] [address] documented as of this encounter Visit Diagnoses Diagnosis Unspecified high-risk - Primary documented in this encounter Care Teams Laborer Poultry Hatchery Relationship Specialty Start Date End Date Mejia Mcgarry MD PCP - General Family Practice 11/04/20 documented as of this encounter
--- OUTSIDE RECORDS SUMMARY | 2024-12-02 07:52 | XMS_ITS | Encounter Summary ---
Author Organization [facility] Address [address] [place] [address] Care Team Providers Care Global Category Manager Name Role Phone Mejia Mcgarry MD Primary Care Provider +1- [phone] Encounter Details Date Type Department Care Team (Late Contact Info) Description 01/24/1999 Outpatient Historical [facility] Family Medicine - [facility] [address] [facility] [place] [address] Kenisha Rosado MD [address] [place] [address] Social History Tobacco Use Types Packs/Day Years Used Date Smoking Tobacco: Never Assessed Comments Unknown Sex and Gender Information Value Date Recorded Sex Assigned at Not on file Legal Sex Female 4:56 AM JUKE BOX SERVICER Gender Identity Not on file Sexual Orientation Not on file documented as of this encounter Plan of Treatment Upcoming Encounters Date Type Department Care Team (Late st Contact Info) Description 10/27/2025 9:45 AM CDT Office Visit [facility] APICULTURIST - Medical [place] [address] [place] [address] Eli Escobar MD [address] [place] [address] documented as of this encounter Visit Diagnoses Not on filedocumented in this encounter Care Teams Global Category Manager Relationship Specialty Start Date End Date Mejia Mcgarry MD PCP - General Family Practice 11/04/20 documented as of this encounter
--- OUTSIDE RECORDS SUMMARY | 2024-12-02 07:52 | XMS_ITS | Encounter Summary ---
Author Organization [facility] Address [address] [place] [address] Care Team Providers Care Fun House Attendant Name Role Phone Mejia Mcgarry MD Primary Care Provider +1- [phone] Encounter Details Date Type Department Care Team (Late Contact Info) Description 04/01/2000 Outpatient Historical [facility] Family Medicine - [facility] [address] [facility] [place] [address] Kenisha Rosado MD [address] [place] [address] Social History Tobacco Use Types Packs/Day Years Used Date Smoking Tobacco: Never Assessed Comments Unknown Sex and Gender Information Value Date Recorded Sex Assigned at Not on file Legal Sex Female 4:56 AM DIESEL SERVICE JOURNEYMAN Gender Identity Not on file Sexual Orientation Not on file documented as of this encounter Plan of Treatment Upcoming Encounters Date Type Department Care Team (Late st Contact Info) Description 10/27/2025 9:45 AM CDT Office Visit [facility] DISPLAY SCREEN FABRICATOR - Medical [place] [address] [place] [address] Eli Escobar MD [address] [place] [address] documented as of this encounter Visit Diagnoses Not on filedocumented in this encounter Care Teams Fun House Attendant Relationship Specialty Start Date End Date Mejia Mcgarry MD PCP - General Family Practice 11/04/20 documented as of this encounter
--- OUTSIDE RECORDS SUMMARY | 2024-12-02 07:52 | XMS_ITS | Encounter Summary ---
Author Organization [facility] Address [address] [place] [address] Care Team Providers Care Press Puller Name Role Phone Mejia Mcgarry MD Primary Care Provider +1- [phone] Encounter Details Date Type Department Care Team (Late Contact Info) Description 06/28/[address] [facility] Family Medicine - [facility] [address] [facility] [place] [address] Kenisha Rosado MD [address] [place] [address] Social History Tobacco Use Types Packs/Day Years Used Date Smoking Tobacco: Never Assessed Comments Unknown Sex and Gender Information Value Date Recorded Sex Assigned at Not on file Legal Sex Female 4:56 AM AURICULAR ACUPUNCTURIST Gender Identity Not on file Sexual Orientation Not on file documented as of this encounter Plan of Treatment Upcoming Encounters Date Type Department Care Team (Late st Contact Info) Description 10/27/2025 9:45 AM CDT Office Visit [facility] VETERINARY VIRUS SERUM INSPECTOR - Medical [place] [address] [place] [address] Eli Escobar MD [address] [place] [address] documented as of this encounter Visit Diagnoses Not on filedocumented in this encounter Care Teams Press Puller Relationship Specialty Start Date End Date Mejia Mcgarry MD PCP - General Family Practice 11/04/20 documented as of this encounter
--- OUTSIDE RECORDS SUMMARY | 2024-12-02 07:53 | XMS_ITS | Encounter Summary ---
Author Organization [facility] Address [address] [place] [address] Care Team Providers Care Funeral Pre Arrangement Specialist Name Role Phone Mejia Mcgarry MD Primary Care Provider +1- [phone] Encounter Details Date Type Department Care Team (Late Contact Info) Description 10/08/2001 Outpatient Historical [facility] Family Medicine - [facility] [address] [facility] [place] [address] Kenisha Rosado MD [address] [place] [address] Social History Tobacco Use Types Packs/Day Years Used Date Smoking Tobacco: Never Assessed Comments Unknown Sex and Gender Information Value Date Recorded Sex Assigned at Not on file Legal Sex Female 4:56 AM SUGAR PRESSER Gender Identity Not on file Sexual Orientation Not on file documented as of this encounter Plan of Treatment Upcoming Encounters Date Type Department Care Team (Late st Contact Info) Description 10/27/2025 9:45 AM CDT Office Visit [facility] CORRECTION WARDEN - Medical [place] [address] [place] [address] Eli Escobar MD [address] [place] [address] documented as of this encounter Visit Diagnoses Not on filedocumented in this encounter Care Teams Funeral Pre Arrangement Specialist Relationship Specialty Start Date End Date Mejia Mcgarry MD PCP - General Family Practice 11/04/20 documented as of this encounter
--- OUTSIDE RECORDS SUMMARY | 2024-12-02 07:53 | XMS_ITS | Encounter Summary ---
Author Organization [facility] Address [address] [place] [address] Care Team Providers Care Guest Associate Name Role Phone Mejia Mcgarry MD Primary Care Provider +1- [phone] Encounter Details Date Type Department Care Team (Latest Contact Info) Description 12/29/2002 Inpatient Historical [facility] Roberto Sosa MD [address] [place] [address] EARLY ONSET DELIVERY-DEL (Primary Dx) Social History Tobacco Use Types Packs/Day Years Used Date Smoking Tobacco: Never Assessed Comments Unknown Sex and Gender Information Value Date Recorded Sex Assigned at Not on file Legal Sex Female 4:56 AM HOUSE DIRECTOR Gender Identity Not on file Sexual Orientation Not on file documented as of this encounter Plan of Treatment Upcoming Encounters Date Type Department Care Team (Late st Contact Info) Description 10/27/2025 9:45 AM CDT Office Visit [facility] WOOD FINISHER APPRENTICE - Medical [place] [address] [address] Eli Escobar MD [facility] [address] [address] documented as of this encounter Visit Diagnoses Diagnosis Early onset of delivery, delivered, with or without mention of antepartum condition- Primary documented in this encounter Care Teams Guest Associate Relationship Specialty Start Date End Date Mejia Mcgarry MD PCP - General Family Practice 11/04/20 documented as of this encounter
--- OUTSIDE RECORDS SUMMARY | 2024-12-02 07:53 | XMS_ITS | Clinical Summary ---
Author Organization [facility] Address [address] [place] [address] Phone Care Team Providers Care Embedded Software Architect Name Role Phone Mejia Mcgarry MD Primary Care Provider +1- [phone] Allergies Active Allergy Reactions Criticality Noted Date [...] STL ABSTRACTION Provider, Abstract 11/02/2024 Results Follow-Up [facility] MERCHANDISE WORKER - [address] [address] Samantha Christianson, LEONARDO CERV/VAG CYTO SCREEN PAP RLFX HPV 10/27/2024 10:00 AM CDT Office Visit [facility] MERCHANDISE WORKER [facility] [address] [facility] [address] [place] [address] Samantha Christianson, BREAD STACKER Encounter for gynecological examination without abnormal finding (Primary Dx); Breast cancer screening by mammogram; Decreased libido from Last 3 Months Immunizations Immunization Administration Dates Next Due (PFIZER)(12 YR UP) COVID-19 VACCINE - EMERGENCY USE AUTHORIZATION, MRNA, [id number](PF) 30 MCG/0.3 ML IM SUSP 07/03/2020,06/07/2020 INFLUENZA [...] on file Legal Sex Female 4:56 AM SOFTWARE TEST AND VALIDATION ENGINEER Gender Identity Not on file Sexual [...] 10/27/2025 9:45 AM CDT Office Visit [facility] MERCHANDISE WORKER - Medical [place] [address] [facility] [address] [place] [address] Eli Escobar MD [address] [place] [address] Health Maintenance Due Date Last [...] been evaluated with the ThinPrep(R) Imaging System. NUCLEAR SUPERVISING OPERATOR: Steve Baron Comment: MMD, CT(ASCP) CT Screening Location: [place] [address] [place] [address] CLIA: [id number] Slide preparation performed at: [facility], [address] [place] [address], [address] CLIA: [id number] REVIEW NUCLEAR SUPERVISING OPERATOR: Kem Baron Comment: TMK, CT(ASCP) CT Screening Location: [place] [address] [place] [address] CLIA: [id number] Slide preparation performed at: [facility], [address] [place] [address], [address] CLIA: [id number] EXPLANATORY NOTE Que st Felipe Baron Comment: [...] and current clinical information. Test Performed [place] [address] [address] Rose-Divay Thi Vo Genital SWAB OF ENDOCERVIX / Unknown 10/27/2024 10:43 AM CDT 10/28/2024 6:50 PM CDT Samantha Christianson NP PATHOLOGY/CYTOLOGY ORDERABL ES Final Result [facility] [phone] [facility] [address] [place] [address] * MAMMO 3D ANJALI SCREEN BILAT W OR WO CAD (11/28/2023 8:30 AM CDT) Anatomical Region Laterality Modality Breast Bilateral Mammography Roberto Sosa MD MAMMO ORDERABLES Final Resul t from Last 3 Months or Most Recently Relevant to Health [place] [address] [facility] BLUE ACCESS CHOICE Advance Directives For more information, please contact: [phone] * Full Code (Latest Code Status on File) Date Activated Date Inactivated Comments 11/16/2020 5:00 PM 11/16/2020 8:09 PM Care Teams Embedded Software Architect Relationship Specialty Start Date End Date Mejia Mcgarry MD PCP - General Family Practice 11/04/20
--- OUTSIDE RECORDS SUMMARY | 2024-12-02 07:53 | XMS_ITS | Encounter Summary ---
Author Organization [facility] Address [address] [place] [address] Care Team Providers Care Drums Teacher Name Role Phone Mejia Mcgarry MD Primary Care Provider +1- [phone] Encounter Details Date Type Department Care Team (Late Contact Info) Description 11/26/2000 Outpatient Historical [facility] Family Medicine - [facility] [address] [facility]. [address] [place] [address] Kenisha Rosado MD [address] [place] [address] Social History Tobacco Use Types Packs/Day Years Used Date Smoking Tobacco: Never Assessed Comments Unknown Sex and Gender Information Value Date Recorded Sex Assigned at Not on file Legal Sex Female 4:[address] BAILIFF OR SHERIFF Gender Identity Not on file Sexual Orientation Not on file documented as of this encounter Plan of Treatment Upcoming Encounters Date Type Department Care Team (Late st Contact Info) Description 10/27/2025 9:45 AM CDT Office Visit [facility] MASTER MERCHANDISER - Medical [place] [address] [place] [address] Eli Escobar MD [address] [place] [address] documented as of this encounter Visit Diagnoses Not on filedocumented in this encounter Care Teams Drums Teacher Relationship Specialty Start Date End Date Mejia Mcgarry MD PCP - General Family Practice 11/04/20 documented as of this encounter
--- OUTSIDE RECORDS SUMMARY | 2024-12-02 07:53 | XMS_ITS | Clinical Summary ---
Author Organization [facility] Address [address] [place] [address] Care Team Providers Care Tool Filer Name Role Phone Mejia Mcgarry MD Primary Care Provider +1 -[phone] Allergies Active Allergy Reactions Criticality Noted Date [...] 02/03/2021 Assessment & Plan (02/03/2021 11:37 AM SENIOR WEB ENGINEER): Patient says that she has a bulging disc but thought that she was not having any issues with that. She is having a sharp shooting pain down her left leg. There is a chance that it is due to this disc. Symptom of leg swelling 01/26/2021 Assessment & Plan (02/03/2021 11:38 AM SENIOR WEB ENGINEER): Patient does have leg swelling of the [...] 01/26/2021 Assessment & Plan (02/03/2021 11:38 AM SENIOR WEB ENGINEER): Patient does not have any significant venous [...] Comments Blood Pressure 140/98 02/01/2021 1:12 PM SENIOR WEB ENGINEER Pulse 90 02/01/2021 1:12 PM SENIOR WEB ENGINEER Temperature - - Respiratory Rate - - Oxygen Saturation - - Inhaled Oxygen Concentration - - Weight 113.4 kg (250 lb) 02/01/2021 1:12 PM SENIOR WEB ENGINEER Height 165.1 cm (5' 5) 02/01/2021 1:12 PM SENIOR WEB ENGINEER Body Mass Index 41.6 02/01/2021 1:12 PM SENIOR WEB ENGINEER Plan of Treatment Not on file Insurance ANTHEM ACCESS CHOICE ANTHEM ACCESS CHOICE BLUE ACC CHOICE [place] [address] [employer] ACCESS CHOICE Care Teams Tool Filer Relationship Specialty Start Date End Date Mejia Mcgarry MD PCP - General Family Medicine 11/13/17
--- OUTSIDE RECORDS SUMMARY | 2024-12-02 07:53 | XMS_ITS | Encounter Summary ---
Author Organization [facility] Address [address] [place] [address] Care Team Providers Care Pocket Operator Name Role Phone Mejia Mcgarry MD Primary Care Provider +1- [phone] Encounter Details Date Type Department Care Team (Late Contact Info) Description 11/02/2024 Results Follow-Up [facility] APPLICATOR SPRAYER - [address] [address] Samantha Christianson NP [address] [address] CERV/VAG CYTO SCREEN PAP RLFX HPV Social History Tobacco Use Types Packs/Day Years Used Date Smoking Tobacco: Never Passive Smoke Exposure: Never Smokeless Tobacco: Never Alcohol Use Standard Drinks/Week Comments Never 0 (1 standard drink = 0.6 oz pur e alcohol) Comments No Sex and Gender Information Value Date Recorded Sex Assigned at Not on file Legal Sex Female 4:56 AM TAR LEVELER Gender Identity Not on file Sexual Orientation Not on file documented as of this encounter Plan of Treatment Upcoming Encounters Date Type Department Care Team (Late Contact Info) Description 10/27/2025 9:45 AM CDT Office Visit [facility] APPLICATOR SPRAYER - [facility] [address] Eli Escobar MD [address] [address] documented as of this encounter Visit Diagnoses Not on filedocumented in this encounter Care Teams Pocket Operator Relationship Specialty Start Date End Date Mejia Mcgarry MD PCP - General Family Practice 11/04/20 documented as of this encounter
--- OUTSIDE RECORDS SUMMARY | 2024-12-02 07:53 | XMS_ITS | Encounter Summary ---
Author Organization [facility] Address [address] [place] [address] Care Team Providers Care Pt Sitter Name Role Phone Mejia Mcgarry MD Primary Care Provider +1- [phone] Encounter Details Date Type Department Care Team (Late Contact Info) Description 10/09/2000 Outpatient Historical [facility] ([facility] Family Medicine - [facility] [address] [facility] [place] [address] Kenisha Rosado MD [address] [place] [address] Social History Tobacco Use Types Packs/Day Years Used Date Smoking Tobacco: Never Assessed Comments Unknown Sex and Gender Information Value Date Recorded Sex Assigned at Not on file Legal Sex Female 4:56 AM CHIEF OF STAFF Gender Identity Not on file Sexual Orientation Not on file documented as of this encounter Plan of Treatment Upcoming Encounters Date Type Department Care Team (Late st Contact Info) Description 10/27/2025 9:45 AM CDT Office Visit [facility] ([facility] RACE AND SPORTS BOOK WRITER - Medical [place] [address] [place] [address] Eli Escobar MD [address] [place] [address] documented as of this encounter Visit Diagnoses Not on filedocumented in this encounter Care Teams Pt Sitter Relationship Specialty Start Date End Date Mejia Mcgarry MD PCP - General Family Practice 11/04/20 documented as of this encounter
--- OUTSIDE RECORDS SUMMARY | 2024-12-02 07:53 | XMS_ITS | Encounter Summary ---
Author Organization [facility] Address [address] [place] [address] Care Team Providers Care Staff Genetic Counselor Name Role Phone Mejia Mcgarry MD Primary Care Provider +1- [phone] Encounter Details Date Type Department Care Team (Late Contact Info) Description 08/13/2000 Outpatient Historical [facility] Family Medicine - [facility] [address] [facility] [address] [place] [address] Kenisha Rosado MD [address] [place] [address] Social History Tobacco Use Types Packs/Day Years Used Date Smoking Tobacco: Never Assessed Comments Unknown Sex and Gender Information Value Date Recorded Sex Assigned at Not on file Legal Sex Female 4:56 AM MOBILE DEVICE DEVELOPER Gender Identity Not on file Sexual Orientation Not on file documented as of this encounter Plan of Treatment Upcoming Encounters Date Type Department Care Team (Late st Contact Info) Description 10/27/2025 9:45 AM CDT Office Visit [facility] APPLIANCE INSTALLER - Medical [place] [address] [place] [address] Eli Escobar MD [address] [place] [address] documented as of this encounter Visit Diagnoses Not on filedocumented in this encounter Care Teams Staff Genetic Counselor Relationship Specialty Start Date End Date Mejia Mcgarry MD PCP - General Family Practice 11/04/20 documented as of this encounter
--- OUTSIDE RECORDS SUMMARY | 2024-12-02 07:53 | XMS_ITS | Encounter Summary ---
Author Organization [facility] Address [address] [place] [address] Care Team Providers Care Roving Or Yarn Color Checker Name Role Phone Mejia Mgcarry MD Primary Care Provider +1- [phone] Encounter Details Date Type Department Care Team (Late Contact Info) Description 01/10/2001 Outpatient Historical [facility] Family Medicine - [facility] [address] [facility] [place] [address] Kenisha Rosado MD [address] [place] [address] Social History Tobacco Use Types Packs/Day Years Used Date Smoking Tobacco: Never Assessed Comments Unknown Sex and Gender Information Value Date Recorded Sex Assigned at Not on file Legal Sex Female 4:56 AM HI RANGER OPERATOR Gender Identity Not on file Sexual Orientation Not on file documented as of this encounter Plan of Treatment Upcoming Encounters Date Type Department Care Team (Late st Contact Info) Description 10/27/2025 9:45 AM CDT Office Visit [facility] CHANNEL DEVELOPMENT MANAGER - Medical [place] [address] [place] [address] Eli Escobar MD [address] [place] [address] documented as of this encounter Visit Diagnoses Not on filedocumented in this encounter Care Teams Roving Or Yarn Color Checker Relationship Specialty Start Date End Date Mejia Mcgarry MD PCP - General Family Practice 11/04/20 documented as of this encounter
--- OUTSIDE RECORDS SUMMARY | 2024-12-02 07:53 | XMS_ITS | Encounter Summary ---
Author Organization [facility] Address [address] [place] [address] Care Team Providers Care Stage Producer Name Role Phone Mejia Mcgarry MD Primary Care Provider +1- [phone] Encounter Details Date Type Department Care Team (Late Contact Info) Description 03/10/2003 Outpatient Historical [facility] Family Medicine - [facility] [address] [facility] [place] [address] Kenisha Rosado MD [address] [place] [address] Social History Tobacco Use Types Packs/Day Years Used Date Smoking Tobacco: Never Assessed Comments Unknown Sex and Gender Information Value Date Recorded Sex Assigned at Not on file Legal Sex Female 4:56 AM ETYMOLOGY PROFESSOR Gender Identity Not on file Sexual Orientation Not on file documented as of this encounter Plan of Treatment Upcoming Encounters Date Type Department Care Team (Late st Contact Info) Description 10/27/2025 9:45 AM CDT Office Visit [facility] CUSTOMER LEADER - Medical [place] [address] [place] [address] Eli Escobar MD [address] [place] [address] documented as of this encounter Visit Diagnoses Not on filedocumented in this encounter Care Teams Stage Producer Relationship Specialty Start Date End Date Mejia Mcgarry MD PCP - General Family Practice 11/04/20 documented as of this encounter
--- OUTSIDE RECORDS SUMMARY | 2024-12-02 07:53 | XMS_ITS | Encounter Summary ---
Author Organization [facility] Address [address] [address] [place] [address] Care Team Providers Care Pulmonology Physician Name Role Phone Mejia Mcgarry MD Primary Care Provider +1- [phone] Encounter Details Date Type Department Care Team (Late Contact Info) Description 03/11/2001 Outpatient Historical [facility] Family Medicine - [facility] [address] [facility] [place] [address] Kenisha Rosado MD [address] [place] [address] Social History Tobacco Use Types Packs/Day Years Used Date Smoking Tobacco: Never Assessed Comments Unknown Sex and Gender Information Value Date Recorded Sex Assigned at Not on file Legal Sex Female 4:56 AM MANAGEMENT PROFESSIONALS Gender Identity Not on file Sexual Orientation Not on file documented as of this encounter Plan of Treatment Upcoming Encounters Date Type Department Care Team (Late st Contact Info) Description 10/27/2025 9:45 AM CDT Office Visit [facility] HEATING TECHNICIAN - Medical [place] [address] [place] [address] Eli Escobar MD [address] [place] [address] documented as of this encounter Visit Diagnoses Not on filedocumented in this encounter Care Teams Pulmonology Physician Relationship Specialty Start Date End Date Mejia Mcgarry MD PCP - General Family Practice 11/04/20 documented as of this encounter
--- OUTSIDE RECORDS SUMMARY | 2024-12-02 07:53 | XMS_ITS | Clinical Summary ---
Author Organization [facility] Address [address] [place] [address] Phone Care Team Providers Care Drag Sawyer Name Role Phone Mejia Mcgarry MD Primary Care Provider +1- [phone] Allergies No known active allergies Medications No [...] on file Legal Sex Female 9:55 AM SKIVER MACHINE OPERATOR Gender Identity Not on file [...] 165.1 cm (5' 5) 03/10/2020 10:05 AM SKIVER MACHINE OPERATOR Body Mass Index 38.27 03/10/2020 10:05 AM SKIVER MACHINE OPERATOR Plan of Treatment Health Maintenance Due Date [...] 2023 Zoster Immunization (1 of 2) 2023 Influenza Immunization (#1) 2024 09/0 04/2019, 12/21/2018, 11/26/2017, Additional history exists SARS-COV-2 Immunization (2024- season) 2024 02/24/2021, 07/03/2020, 06/07/2020 Respiratory Syncytial Virus (RSV) Immunization (Adult) (1 - 1-dose 75+ series) 01/29/2048 Human Papillomavirus (HPV) Immunization Aged Out No longer eligible based on patient's age to complete this topic Meningococcal Immunization (ACWY) Aged Out No longer eligible based on patient's age to complete this topic Rotavirus Immunization Aged Out No lo nger eligible based on patient's age to complete this [place] [address] [facility] Care Teams Drag Sawyer Relationship Specialty Start Date End Date Mejia Mcgarry MD [address] [place] [address] [address] [place] [address] PCP - General Family Medicine 03/10/20
--- OUTSIDE RECORDS SUMMARY | 2024-12-02 07:53 | XMS_ITS | Clinical Summary ---
Author Organization [facility] Address [address] [facility] [place] [address] Care Team Providers Care Supply Tech Name Role Phone Unavailable Primary Care Provider Unavailabl e Source Comments [facility],non-owned Affiliates and Associated Physician Practices is amultiple site organization consisting of ambulatory clinics and hospital sitesin [place], [place], [place] and [place]. This disclosure is being madepursuant to the Care Everywhere program and may not contain all information available regarding this patient. Last updated 17.[facility] Allergies Active Allergy Reactions Criticality Noted Date [...] to complete this [place] [address] [place] [address] MIS
== END 2024-12-02 07:33 | disposition home or self-care (01) ==
PROVIDERS: PCP Family Medicine; Visit Provider Obstetrics & Gynecology
DX: Z12.31 Encounter for screening mammogram for malignant neoplasm of breast (principal)
CPT/HCPCS: 77063; 77067